=== PATIENT | female | born 1975 | race Caucasian/White ===

== ENCOUNTER 2018-11-04 15:07 | Emergency (ER) | payer BC ==
[2018-11-04 15:33] VITALS: BP 121/60
--- NOTE | 2018-11-04 15:57 | EDM.PDOC ---
ED HPI GENERAL MEDICAL PROBLEM - General Chief Complaint: Lower Extremity Injury/Pain Stated Complaint: PAIN BOTH KNEES Time Seen by Provider: 11/04/18 15:37 Source of Information: Reports: Patient History Limitations: Reports: No Limitations - History of Present Illness INITIAL COMMENTS - FREE TEXT/NARRATIVE: Patient is a 43-year-old female with a history of chronic knee pain secondary to bone spurs and osteoarthritis. She presents to the ED complaining of pain not well controlled with the anti-inflammatory gel that was previously prescribed by Dr. Hendrix. Patient states since March 2018 she has been falling due intermittent episodes of BPV. In addition she states with standing she sometimes gets sharp pains to the knee that are quite intense that worsens her BPV and thus causes her to fall. The pain dissipates but the ache continues. She states this morning with standing she developed severe sharp pain to the right lateral knee which caused her to fall on her knees bilaterally. Denies any trauma to her knee requiring x-rays. She refuses obtaining x-rays. States she had x-rays at Dr. Hendrix's office last week and thus does not want any additional ones. She sick and tired of having this pain is requesting something stronger for discomfort. She has not been on any narcotics for quite some time. She has been using ice to affected area as her normal therapy for chronic knee discomfort. 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 ED EXAM, GENERAL - Physical Exam Exam: See Below Exam Limited By: No Limitations General Appearance: Alert, WD/WN, No Apparent Distress Ears: Hearing Grossly Normal Nose: Normal Inspection Throat/Mouth: Normal Voice, No Airway Compromise Head: Atraumatic, Normocephalic Neck: Normal Inspection, Supple Respiratory/Chest: No Respiratory Distress, No Accessory Muscle Use Cardiovascular: Normal Peripheral Pulses, Regular Rate, Rhythm Peripheral Pulses: 2+: Radial (R) Extremities: Other (On examination of the right knee there is slight swelling noted to the inferior border of the knee along the medial aspect. This is compared to the left knee. With palpation of the right knee ain noted to the lateral aspect of the knee along the joint space. Pain along the area of swelling. There is no bruising no obvious bony antibiotics. She is able to flex and extend the knee with no issues. with provocative testing testing is limited due to the pain. No instability noted.) Neurological: Alert, Oriented, CN II-XII Intact, Normal Cognition, No Motor/ Sensory Deficits Course - Vital Signs Last Recorded V/S: Last Vital Signs Temp 98.3 F 11/04/18 15:27 Pulse 75 11/04/18 15:27 Resp 18 11/04/18 15:27 BP 121/60 11/04/18 15:27 Pulse Ox 98 11/04/18 15:27 - Re-Assessments/Exams Free Text/Narrative Re-Assessment/Exam: I have offered to obtain x-ray of the right knee twisted patient has refused. In addition I have offered to provide patient a walker to assure refuses as well. Patient states the discomfort she is currently experiencing is chronic with no significant changes. She is requesting something stronger for the pain. I have provided a short course of Loomis with instructions to follow-up with PCP tomorrow for further pain management. i informed the patient the emergency department does not treat chronic pain thus this needs to be managed by PCP or a pain specialist. Patient had no further questions concerns agree with plan. Return precautions were discussed with the patient. Departure - Departure Time of Disposition: :54 Disposition: Home, Self-Care 01 Condition: Good Clinical Impression: Chronic pain of both knees - Discharge Information Prescriptions: Acetaminophen/HYDROcodone [Loomis 325-5 MG] 1 tab PO Q6H PRN #5 tablet PRN Reason: Pain (Severe 7-10) Instructions: Knee Pain, Adult, Chronic Pain, Adult Referrals: Amari Hendrix MD [Physician] - Forms: ED Department Discharge Additional Instructions: As discussed continue with all our original home medications as prescribed for your chronic bilateral knee pain.I have provided a short course of Norco5/325. Take 1 tab every 6 hours as needed for severe pain.Do not drivenor take the Loomis and Tylenol together. He will have to see Dr. Hendrix or primary care provider of your choice for continued pain management.
== END 2018-11-04 16:09 | disposition home or self-care (01) ==
LOC: JD.ED 15:07
DX: M25.561 Pain in right knee (principal); M25.562 Pain in left knee; G89.29 Other chronic pain; Z88.8 Allergy status to other drugs, medicaments and biological substances; Z79.899 Other long term (current) drug therapy
CPT/HCPCS: 99283

== ENCOUNTER 2019-07-08 10:13 | Emergency (ER) | payer BC ==
[2019-07-08 10:33] VITALS: BP 125/89; PULSE 79
[2019-07-08] MEDS ORDERED: FLU Vacc QS2019-20(6MOS+)/PF 60 MCG/0.5 ML SYRINGE IM ONE (10:45)
[2019-07-08] MEDS ORDERED: Acetaminophen/HYDROcodone 325-5 MG Tab PO ONE (11:21)
[2019-07-08] MEDS ORDERED: Ketorolac 60 MG/2 ML SDV IM ONE (11:21)
--- NOTE | 2019-07-08 11:35 | EDM.PDOC ---
ED HPI GENERAL MEDICAL PROBLEM - General Chief Complaint: Lower Extremity Injury/Pain Stated Complaint: BOTH KNEE PAIN Time Seen by Provider: 07/08/19 11:05 Source of Information: Reports: Patient, RN Notes Reviewed - History of Present Illness INITIAL COMMENTS - FREE TEXT/NARRATIVE: 43 year old female comes in with bilat knee pain. Hx of osteoarthritis, has had cortisone shots that have helped but unable to get appt until late August. Severe pain this morning with standing, walking both knees, L greater than R. No recent injury. No fever or chills. Has been taking ibuprofen. No fall or recent injury. Other joints are fine. 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 Bilateral Knee Pain Score (Numeric/FACES): 10 - Related Data Allergies Allergy/AdvReac Type Severity Reaction Status Date / Time coconut Allergy Hives Verified 07/08/19 10:33 doxycycline Allergy Hives Verified 07/08/19 10:33 duloxetine [From Cymbalta] Allergy Hives Verified 07/08/19 10:33 prednisone Allergy Arrhythmias Verified 07/08/19 10:33 venlafaxine [From Effexor] Allergy Other Verified 07/08/19 10:33 Home Meds: Home Meds DULoxetine [Cymbalta] 120 mg PO DAILY 04/20/19 [History] Acetaminophen/HYDROcodone [[place] 325-5 MG] 1 tab PO Q6HR PRN #10 tablet [Rx] Ibuprofen 800 mg PO Q6HR 07/08/19 [History] Naproxen [Naprosyn] 500 mg PO Q12HR #14 tab 07/08/19 [Rx] Past Medical History Other HEENT History: nystagmus Cardiovascular History: Reports: Heart Murmur 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 Musculoskeletal History: Reports: Neck Pain, Chronic, Other (See Below) Other Musculoskeletal History: fusion to neck in January 2016 in [place] Psychiatric History: Reports: Anxiety, Depression - Past Surgical History GI Surgical History: Reports: Cholecystectomy Female Surgical History: Reports: Tubal Ligation Neurological Surgical History: Reports: C-Spine Social & Family History - Tobacco Use Smoking Status *Q: Current Every Day Smoker Years of Tobacco use: 30 Packs/Tins Daily: 1 - Caffeine Use Caffeine Use: Reports: Coffee - Recreational Drug Use Recreational Drug Use: No - Living Situation & Occupation Living situation: Reports: Occupation: Unemployed Review of Systems - Review of Systems Review Of Systems: See Below Mouth/Throat: Reports: No Symptoms Respiratory: Denies: Shortness of Breath Cardiovascular: Denies: Chest Pain GI/Abdominal: Denies: Abdominal Pain Musculoskeletal: Reports: Joint Pain (bilat knee) Neurological: Denies: Numbness, Tingling, Weakness ED EXAM, GENERAL - Physical Exam Exam: See Below General Appearance: Alert, Mild Distress Throat/Mouth: Normal Inspection Head: Atraumatic. No: Facial Swelling Neck: Supple, Full Range of Motion Respiratory/Chest: No Respiratory Distress, Lungs Clear, Normal Breath Sounds Cardiovascular: Regular Rate, Rhythm Extremities: Other (mild tenderness bilat knees, no erythema, warmth or swelling , lower legs nontender). No: Leg Pain, Increased Warmth, Redness Neurological: Alert, Oriented, No Motor/Sensory Deficits Skin Exam: Warm, Dry, Normal Color, No Rash Course - Vital Signs Last Recorded V/S: Last Vital Signs Temp 97.7 F 07/08/19 10:26 Pulse 79 07/08/19 10:26 Resp 20 07/08/19 10:26 BP 125/89 07/08/19 10:26 Pulse Ox 100 07/08/19 10:26 - Orders/Labs/Meds Meds: Medications Discontinued Medications Generic Name Dose Route Start Last Admin Trade Name María PRN Reason Stop Dose Admin Hydrocodone Bitart/Acetaminophen 1 tab 07/08/19 11:21 07/08/19 11:41 [place] 325-5 Mg PO 07/08/19 11:22 1 tab ONETIME ONE Administration Influenza Virus Vaccine 1 each 07/08/19 10:35 Pharmacy To Dose - Influenza Vaccine IM 07/08/19 10:36 ONETIME ONE Influenza Virus Vaccine 60 mcg 07/08/19 10:45 07/08/19 10:50 Fluzone Quad [id number] Syringe IM 07/08/19 10:46 60 mcg .ONCE ONE Administration Ketorolac Tromethamine 60 mg 07/08/19 11:21 07/08/19 11:41 Toradol IM 07/08/19 11:22 60 mg ONETIME ONE Administration - Re-Assessments/Exams Free Text/Narrative Re-Assessment/Exam: 07/08/19 12:08 rest knees, naprosyn 500 mg twice daily, tylenol in between doses for extra pain relief or hydrocodone if needed for severe pain. Do not take tylenol and hydrocodone at the same time. Physical Therapy, call for appt. Try see Dr Oakley at [facility] for eval, possible steroid injection if indicated. Call [phone] for appointment. Departure - Departure Time of Disposition: 11:46 Disposition: Home, Self-Care 01 Condition: Fair Clinical Impression: Knee pain, bilateral, Osteoarthritis - Discharge Information Prescriptions: Acetaminophen/HYDROcodone [[place] 325-5 MG] 1 tab PO Q6HR PRN #10 tablet PRN Reason: Pain Naproxen [Naprosyn] 500 mg PO Q12HR #14 tab Instructions: Decision Aid - Osteoarthritis, Knee, Arthritis, [id number] Referrals: Lauren Sevilla PA-C [Primary Care Provider] - Forms: ED Department Discharge Additional Instructions: rest knees, naprosyn 500 mg twice daily, tylenol 2 to 3 times daily in addition or hydrocodone if needed for severe pain. Do not take tylenol and ibuprofen at the same time. Alternate ice and heat as needed. Physical therapy. See Dr Oakley, Orthopedist at [facility] if that gives you an earlier appointment, call [phone].
== END 2019-07-08 12:30 | disposition home or self-care (01) ==
LOC: JD.ED 10:13
DX: M17.0 Bilateral primary osteoarthritis of knee (principal); F41.9 Anxiety disorder, unspecified; F32.9 Major depressive disorder, single episode, unspecified; F17.210 Nicotine dependence, cigarettes, uncomplicated; Z91.018 Allergy to other foods; Z88.8 Allergy status to other drugs, medicaments and biological substances; Z88.1 Allergy status to other antibiotic agents; Z79.899 Other long term (current) drug therapy; Z23 Encounter for immunization
CPT/HCPCS: 90471; 90686; 96372; 99283; A9270; J1885; G0008

== ENCOUNTER 2019-09-08 18:13 | Inpatient (IN) | payer SELFPAY ==
[2019-09-08] MEDS ORDERED: Sodium Chloride 0.9% 1,000 ML IV SCH (18:30)
[2019-09-08] MEDS ORDERED: Sodium Chloride 0.9% 10 ML Syringe FLUSH PRN (18:46)
[2019-09-08] MEDS ORDERED: Haloperidol Lactate 5 MG/ML SDV ONE (18:59)
[2019-09-08] MEDS ORDERED: Haloperidol Lactate 5 MG/ML SDV IVPUSH ONE ×3 (19:00→20:03)
--- NOTE | 2019-09-08 19:06 | EDM.PDOC ---
ED HPI GENERAL MEDICAL PROBLEM - General Chief Complaint: Drug or Alcohol Abuse Stated Complaint: [facility] Time Seen by Provider: 09/08/19 18:46 Source of Information: Reports: Patient, EMS, RN Notes Reviewed - History of Present Illness INITIAL COMMENTS - FREE TEXT/NARRATIVE: 44 year old female brought in by EMS with hx of overdose. Her is reported to have found her taking a "handful of pills" She states they were 5 mg flexeril, maybe a "few advil". Denies alcohol. Smoked some marijuana recently but not today. States she is depressed, "wants to " Chronic knee pain. Other problems that were difficult to make out. Takes cymbalta for depression. or boyfriend so far has not come to the ED. Bilateral Knee Pain Score (Numeric/FACES): 8 - Related Data Allergies Allergy/AdvReac Type Severity Reaction Status Date / Time coconut Allergy Hives Verified 09/09/19 01:50 doxycycline Allergy Hives Verified 09/09/19 01:50 duloxetine [From Cymbalta] Allergy Hives Verified 09/09/19 01:50 venlafaxine [From Effexor] Allergy Other Verified 09/09/19 01:50 prednisone AdvReac Arrhythmias Verified 09/09/19 11:11 Home Meds: Home Meds DULoxetine [Cymbalta] 120 mg PO DAILY 04/20/19 [History] Ibuprofen 800 mg PO Q6HR PRN 07/08/19 [History] Past Medical History Other HEENT History: nystagmus Cardiovascular History: Reports: Heart Murmur 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 Musculoskeletal History: Reports: Neck Pain, Chronic, Other (See Below) Other Musculoskeletal History: fusion to neck in January 2016 in [place] Psychiatric History: Reports: Anxiety, Depression - Past Surgical History GI Surgical History: Reports: Cholecystectomy Female Surgical History: Reports: Tubal Ligation Neurological Surgical History: Reports: C-Spine Social & Family History - Tobacco Use Smoking Status *Q: Current Every Day Smoker Years of Tobacco use: 20 Packs/Tins Daily: 1 - Caffeine Use Caffeine Use: Reports: Coffee - Recreational Drug Use Recreational Drug Use: Yes Recreational Drug Type: Reports: Marijuana/Hashish Recreational Drug Use Frequency: Rarely - Living Situation & Occupation Living situation: Reports: Occupation: Unemployed ED ROS GENERAL - Review of Systems Review Of Systems: See Below Constitutional: Denies: Diaphoresis HEENT: Reports: No Symptoms Respiratory: Denies: Shortness of Breath Cardiovascular: Denies: Chest Pain GI/Abdominal: Denies: Abdominal Pain, Nausea, Vomiting Musculoskeletal: Reports: Back Pain Skin: Reports: No Symptoms (Chronic) Neurological: Reports: Dizziness Psychiatric: Reports: Depression, Suicidal Ideation - Physical Exam Exam: See Below General Appearance: Alert, Anxious, Moderate Distress Eye Exam: Bilateral Eye: PERRL Throat/Mouth: Normal Inspection, Normal Oropharynx Head Exam: Atraumatic Neck: Supple Respiratory/Chest: No Respiratory Distress, Lungs Clear, Normal Breath Sounds Cardiovascular: Regular Rate, Rhythm GI/Abdominal: Soft, Non-Tender Neuro Exam (Abbreviated): Alert, No Motor/Sensory Deficits Extremities: Normal Inspection, Normal Range of Motion Psychiatric: Anxious, Other (Loud voice, yelling, crying) Skin Exam: Warm, Dry, Normal Color EKG INTERPRETATION EKG Date: 09/08/19 Rhythm: NSR P-Wave: Present QRS: Other (incomplete RBB) ST-T: Other (ST depression inf. leads) Course - Vital Signs Last Recorded V/S: Last Vital Signs Temp 97.0 F 09/09/19 20:00 Pulse 80 09/09/19 04:00 Resp 18 09/09/19 20:00 BP 136/63 09/09/19 20:00 Pulse Ox 97 09/09/19 20:00 - Orders/Labs/Meds Orders: Medication Orders Hydromorphone HCl (Dilaudid) 1 mg IVPUSH Q1H PRN PRN Reason: Pain (severe 7-10) Sodium Chloride (Normal Saline) 1,000 mls @ 150 mls/hr IV ASDIRECTED [facility] Last Admin: 09/09/19 16:11 Dose: 150 mls/hr Infusion: 09/09/19 16:11 Dose: 150 mls/hr Admin: 09/09/19 09:34 Dose: 150 mls/hr Infusion: 09/09/19 09:34 Dose: 150 mls/hr Admin: 09/09/19 04:33 Dose: 150 mls/hr Infusion: 09/09/19 04:33 Dose: 150 mls/hr Admin: 09/09/19 02:41 Dose: 150 mls/hr Infusion: 09/09/19 02:41 Dose: 150 mls/hr Admin: 09/08/19 22:40 Dose: 150 mls/hr Lorazepam (Ativan) 1 mg IVPUSH Q1H PRN PRN Reason: Anxiety Last Admin: 09/09/19 14:44 Dose: 1 mg Admin: 09/09/19 09:27 Dose: 1 mg Admin: 09/09/19 00:53 Dose: 1 mg Admin: 09/08/19 23:55 Dose: 1 mg Admin: 09/08/19 22:59 Dose: 1 mg Lorazepam (Ativan) 2 mg IVPUSH Q1H PRN PRN Reason: Anxiety Last Admin: 09/09/19 20:31 Dose: 2 mg Admin: 09/09/19 19:36 Dose: 2 mg Admin: 09/09/19 17:57 Dose: 2 mg Admin: 09/09/19 16:39 Dose: 2 mg Admin: 09/09/19 06:11 Dose: 2 mg Admin: 09/09/19 05:14 Dose: 2 mg Admin: 09/09/19 04:15 Dose: 2 mg Admin: 09/09/19 03:04 Dose: 2 mg Admin: 09/09/19 01:56 Dose: 2 mg Miscellaneous Information (Remove Patch) 0 ea TRDERM DAILY [facility] Nicotine (Habitrol) 21 mg TRDERM DAILY [facility] Last Admin: 09/09/19 11:46 Dose: 21 mg Pantoprazole Sodium (Protonix Iv) 40 mg IVPUSH Q12H HELGA Last Admin: 09/09/19 19:44 Dose: 40 mg Admin: 09/09/19 06:34 Dose: 40 mg Sodium Chloride (Saline Flush) 10 ml FLUSH ASDIRECTED PRN PRN Reason: Keep Vein Open Last Admin: 09/08/19 20:04 Dose: 10 ml Labs: Laboratory Tests 09/08/19 09/08/19 09/08/19 Range/Units 18:32 18:32 18:32 WBC 5.84 (3.98-10.04) K/mm3 RBC 5.64 H (3.98-5.22) M/mm3 Hgb 16.6 H D (11.2-15.7) gm/dl Hct 50.8 H (34.1-44.9) % MCV 90.1 (79.4-94.8) fl MCH 29.4 (25.6-32.2) pg MCHC 32.7 (32.2-35.5) g/dl RDW Std Deviation 45.4 (36.4-46.3) fL Plt Count 235 (182-369) K/mm3 MPV 10.6 (9.4-12.3) fl Neut % (Auto) 53.1 (34.0-71.1) % Lymph % (Auto) 35.1 (19.3-51.7) % [place] % (Auto) 9.9 (4.7-12.5) % Eos % (Auto) 1.4 (0.7-5.8) Baso % (Auto) 0.3 (0.1-1.2) % Neut # (Auto) 3.10 (1.56-6.13) K/mm3 Lymph # (Auto) 2.05 (1.18-3.74) K/mm3 [place] # (Auto) 0.58 H (0.24-0.36) K/mm3 Eos # (Auto) 0.08 (0.04-0.36) K/mm3 Baso # (Auto) 0.02 (0.01-0.08) K/mm3 Sodium 144 (136-145) mEq/L Potassium 3.4 L (3.5-5.1) mEq/L Chloride 103 (98-107) mEq/L Carbon Dioxide 28 (21-32) mEq/L Anion Gap 16.4 H (5-15) BUN 16 (7-18) mg/dL Creatinine 1.0 (0.55-1.02) mg/dL Est Cr Clr Drug Dosing 65.81 mL/min Estimated GFR (MDRD) 60 (>60) mL/min BUN/Creatinine Ratio 16.0 (14-18) Glucose 121 H (74-106) mg/dL Calcium 9.8 (8.5-10.1) mg/dL Magnesium 2.0 (1.8-2.4) mg/dl Total Bilirubin 1.1 H (0.2-1.0) mg/dL AST 27 (15-37) U/L ALT 22 (14-59) U/L Alkaline Phosphatase 120 H (46-116) U/L Troponin I < 0.017 (0.00-0.056) ng/mL Total Protein 9.1 H (6.4-8.2) g/dl Albumin 4.6 (3.4-5.0) g/dl Globulin 4.5 gm/dL Albumin/Globulin Ratio 1.0 (1-2) Salicylates (2.8-20) mg/dL Urine Opiates Screen (IQYWWR=311) Ur Buprenorphine Scrn (CUTOFF=10) Ur Oxycodone Screen (STK6CG=014) Urine Methadone Screen (BXQYWJ=310) Ur Propoxyphene Screen (SRAJDE=639) Acetaminophen 0 L (10-30) ug/mL Ur Barbiturates Screen (LOFJHG=570) Ur Tricyclics Screen (CNFAMY=230) Ur Phencyclidine Scrn (CUTOFF=25) Ur Amphetamine Screen (PPAAPM=699) U Methamphetamines Scrn (ODAWON=975) U Benzodiazepines Scrn (AFPKOT=010) U Cocaine Metab Screen (LLPMJQ=508) U Marijuana (THC) Screen (CUTOFF=50) Ethyl Alcohol 0.00 (0.00) gm% 09/08/19 09/08/19 Range/Units 18:32 18:50 WBC (3.98-10.04) K/mm3 RBC (3.98-5.22) M/mm3 Hgb (11.2-15.7) gm/dl Hct (34.1-44.9) % MCV (79.4-94.8) fl MCH (25.6-32.2) pg MCHC (32.2-35.5) g/dl RDW Std Deviation (36.4-46.3) fL Plt Count (182-369) K/mm3 MPV (9.4-12.3) fl Neut % (Auto) (34.0-71.1) % Lymph % (Auto) (19.3-51.7) % [place] % (Auto) (4.7-12.5) % Eos % (Auto) (0.7-5.8) Baso % (Auto) (0.1-1.2) % Neut # (Auto) (1.56-6.13) K/mm3 Lymph # (Auto) (1.18-3.74) K/mm3 [place] # (Auto) (0.24-0.36) K/mm3 Eos # (Auto) (0.04-0.36) K/mm3 Baso # (Auto) (0.01-0.08) K/mm3 Sodium (136-145) mEq/L Potassium (3.5-5.1) mEq/L Chloride (98-107) mEq/L Carbon Dioxide (21-32) mEq/L Anion Gap (5-15) BUN (7-18) mg/dL Creatinine (0.55-1.02) mg/dL Est Cr Clr Drug Dosing mL/min Estimated GFR (MDRD) (>60) mL/min BUN/Creatinine Ratio (14-18) Glucose (74-106) mg/dL Calcium (8.5-10.1) mg/dL Magnesium (1.8-2.4) mg/dl Total Bilirubin (0.2-1.0) mg/dL AST (15-37) U/L ALT (14-59) U/L Alkaline Phosphatase (46-116) U/L Troponin I (0.00-0.056) ng/mL Total Protein (6.4-8.2) g/dl Albumin (3.4-5.0) g/dl Globulin gm/dL Albumin/Globulin Ratio (1-2) Salicylates 3.3 (2.8-20) mg/dL Urine Opiates Screen Negative (MVYTTQ=213) Ur Buprenorphine Scrn Negative (CUTOFF=10) Ur Oxycodone Screen Negative (GXA6TX=621) Urine Methadone Screen Negative (HPJJPS=608) Ur Propoxyphene Screen Negative (XJUGHQ=613) Acetaminophen (10-30) ug/mL Ur Barbiturates Screen Negative (SCXJSF=463) Ur Tricyclics Screen Presumptive positive H (MKJFQE=316) Ur Phencyclidine Scrn Negative (CUTOFF=25) Ur Amphetamine Screen Negative (XYYGST=819) U Methamphetamines Scrn Negative (WKCYUP=200) U Benzodiazepines Scrn Negative (FQYQBA=298) U Cocaine Metab Screen Negative (WZSRUQ=148) U Marijuana (THC) Screen Presumptive positive H (CUTOFF=50) Ethyl Alcohol (0.00) gm% Meds: Medications Generic Name Dose Route Start Last Admin Trade Name Freq PRN Reason Stop Dose Admin Hydromorphone HCl 1 mg 09/09/19 17:55 Dilaudid IVPUSH Q1H PRN Pain (severe 7-10) Sodium Chloride 1,000 mls @ 150 mls/hr 09/08/19 22:45 09/09/19 16:11 Normal Saline IV 150 mls/hr ASDIRECTED HELGA Administration Lorazepam 1 mg 09/08/19 21:59 09/09/19 14:44 Ativan IVPUSH 1 mg Q1H PRN Administration Anxiety Lorazepam 2 mg 09/09/19 01:27 09/09/19 20:31 Ativan IVPUSH 2 mg Q1H PRN Administration Anxiety Miscellaneous Information 0 ea 09/10/19 09:00 Remove Patch TRDERM DAILY HELGA Nicotine 21 mg 09/09/19 11:30 09/09/19 11:46 Habitrol TRDERM 21 mg DAILY [facility] Administration Pantoprazole Sodium 40 mg 09/09/19 07:30 09/09/19 19:44 Protonix Iv IVPUSH 40 mg Q12H HELGA Administration Sodium Chloride 10 ml 09/08/19 18:46 09/08/19 20:04 Saline Flush FLUSH 10 ml ASDIRECTED PRN Administration Keep Vein Open Discontinued Medications Generic Name Dose Route Start Last Admin Trade Name Freq PRN Reason Stop Dose Admin Haloperidol Lactate 5 mg 09/08/19 19:00 09/08/19 19:03 Haldol IVPUSH 09/08/19 19:01 5 mg ONETIME ONE Administration Haloperidol Lactate 5 mg 09/08/19 19:00 09/08/19 19:03 Haldol IVPUSH 09/08/19 19:01 Not Given ONETIME ONE Haloperidol Lactate Confirm 09/08/19 18:59 09/08/19 19:02 Haldol Administered 09/08/19 19:00 Not Given Dose 5 mg .ROUTE .STK-MED ONE Haloperidol Lactate 5 mg 09/08/19 20:03 09/08/19 19:40 Haldol IVPUSH 09/08/19 20:04 5 mg ONETIME ONE Administration Haloperidol Lactate 5 mg 09/09/19 16:48 09/09/19 16:52 Haldol IM 09/09/19 16:49 5 mg STAT ONE Administration Sodium Chloride 1,000 mls @ 999 mls/hr 09/08/19 18:30 09/08/19 18:32 Normal Saline IV 999 mls/hr ASDIRECTED HELGA Administration Lactated Ringer's 1,000 mls @ 150 mls/hr 09/08/19 21:15 Ringers, Lactated IV ASDIRECTED HELGA Potassium Chloride 10 meq/ 100 mls @ 100 mls/hr 09/08/19 23:00 09/09/19 01:54 Premix IV 09/09/19 02:59 100 mls/hr Q1H HELGA Administration Propofol Confirm 09/09/19 21:44 Diprivan 100 Ml Administered 09/09/19 21:45 Dose 100 mls @ as directed .ROUTE .STK-MED ONE Lorazepam Confirm 09/08/19 20:30 09/08/19 21:55 Ativan Administered 09/08/19 20:31 1 mg Dose Administration 2 mg .ROUTE .STK-MED ONE Lorazepam 1 mg 09/08/19 20:34 09/08/19 20:37 Ativan IVPUSH 09/08/19 20:35 1 mg ONETIME ONE Administration Lorazepam Confirm 09/08/19 20:42 09/08/19 21:57 Ativan Administered 09/08/19 20:43 1 mg Dose Administration 2 mg .ROUTE .STK-MED ONE Lorazepam Confirm 09/08/19 20:52 09/08/19 21:59 Ativan Administered 09/08/19 20:53 Not Given Dose 2 mg .ROUTE .STK-MED ONE Pantoprazole Sodium 40 mg 09/08/19 23:00 09/08/19 22:45 Protonix Iv IVPUSH 09/08/19 23:01 40 mg ONETIME ONE Administration Physostigmine Salicylate 0.5 mg 09/09/19 17:54 09/09/19 18:38 Physostigmine IVPUSH 09/09/19 17:55 0.5 mg ONETIME ONE Administration Physostigmine Salicylate 0.5 mg 09/09/19 19:09 09/09/19 22:42 Physostigmine IVPUSH 09/09/19 19:10 Not Given ONETIME ONE - Re-Assessments/Exams Free Text/Narrative Re-Assessment/Exam: 09/08/19 19:20. Was anxious but coherent on arrival, started yelling, hallucinating, yelling at people not present about 15 minutes ago requiring 5 mg haldol IV, slighlty more calm but has been trying to get off the cot, still yelling, agitated, will give 5 mg more haldol IV. 09/08/19 20:12. One of our nurses has called poison control. They state the flexeril effect will peak around 6 hours from time if ingegestion which was around 3hrs ago. Expect qt prolongation, agitation and/or sedation. Cymbalta expect EKG changes, treat symptamatically. They recomend a salycylate level which will be done, recomend EKG monitering for a minimum of 8 hrs which will be done. Recomend and further treatment be with benzodizepines, no haldol to avoid any further qt effect. Pt will be admitted to ICU. Departure - Departure Time of Disposition: 22:05 Disposition: Admitted As Inpatient 64 Condition: Serious Clinical Impression: Suicidal ideation Drug overdose, intentional Qualifiers: Encounter type: initial encounter Qualified Code(s): T50.902A - Poisoning by unspecified drugs, medicaments and biological substances, intentional self-harm , initial encounter - Discharge Information ED Communication - Discussed Case With (1) Discussed Case With (1): Admitting Provider (Dr Up, decision to admit at about 22:05.)
[2019-09-08] MEDS ORDERED: LORazepam 2 MG/ML SDV ONE ×3 (20:30→20:52)
[2019-09-08] MEDS ORDERED: LORazepam 2 MG/ML SDV IVPUSH ONE (20:34)
[2019-09-08] MEDS ORDERED: Lactated Ringers 1,000 ML IV SCH (21:15)
--- NOTE | 2019-09-08 22:34 | PCM.HP.2 ---
H&P History of Present Illness - General Date of Service: 09/08/19 Admit Problem/Dx: Admission Diagnosis/Problem Admission Diagnosis/Problem Drug overdose - History of Present Illness Initial Comments - Free Text/Narative: 44-year-old female brought into the emergency department by EMS secondary to a drug overdose. Patient's and her had an argument and she went to the bathroom and slammed the door. He states he kicked the door and and she was found after taking a handful of Flexeril and maybe a few Advil. Flexeril was reported to be 5 mg tablets, and states that she probably took around 20 but he is not sure. When she presented to the emergency room she did state "wants to " and wanted to escape the pain from her chronic knee pain. She has a history of depression and is on Cymbalta, but her does not think she took any extra tonight. Patient also uses marijuana for pain. In the emergency room she was initially anxious but coherent and then suddenly started yelling, hallucinating, and yelling at people not present. Patient was then given Haldol 5 mg IV x2 to control her agitation. Once poison control was contacted it was noted that we should expect QT prolongation, agitation, and/or sedation. Flexeril's peak effect should occur approximately 6 hours and Cymbalta approximately 8 hours. They recommended minimum of 8 hours on cardiac monitoring. They also recommended using benzodiazepines for agitation. EKG done at 1951 showed sinus tachycardia with a ventricular rate of [address] depression in inferior anterolateral leads diffusely. Bilateral Knee Pain Score (Numeric/FACES): 8 - Related Data Allergies/Adverse Reactions: Allergies Allergy/AdvReac Type Severity Reaction Status Date / Time coconut Allergy Hives Verified 07/08/19 10:33 doxycycline Allergy Hives Verified 07/08/19 10:33 duloxetine [From Cymbalta] Allergy Hives Verified 07/08/19 10:33 prednisone Allergy Arrhythmias Verified 07/08/19 10:33 venlafaxine [From Effexor] Allergy Other Verified 07/08/19 10:33 Home Medications: Home Meds DULoxetine [Cymbalta] 120 mg PO DAILY 04/20/19 [History] Acetaminophen/HYDROcodone [[place] 325-5 MG] 1 tab PO Q6HR PRN #10 tablet [Rx] Ibuprofen 800 mg PO Q6HR 07/08/19 [History] Naproxen [Naprosyn] 500 mg PO Q12HR #14 tab 07/08/19 [Rx] Past Medical History Other HEENT History: nystagmus Cardiovascular History: Reports: Heart Murmur [employer] History: Reports: Other OB/BYN History: 3 vag del Musculoskeletal History: Reports: Neck Pain, Chronic, Other (See Below) Other Musculoskeletal History: fusion to neck in January 2016 in [place] Psychiatric History: Reports: Anxiety, Depression - Past Surgical History GI Surgical History: Reports: Cholecystectomy Female Surgical History: Reports: Tubal Ligation Neurological Surgical History: Reports: C-Spine Social & Family History - Tobacco Use Smoking Status *Q: Current Every Day Smoker Years of Tobacco use: 20 Packs/Tins Daily: 1 - Caffeine Use Caffeine Use: Reports: Coffee - Recreational Drug Use Recreational Drug Use: Yes Recreational Drug Type: Reports: Marijuana/Hashish Recreational Drug Use Frequency: Rarely - Living Situation & Occupation Living situation: Reports: Occupation: Unemployed H&P Review of Systems - Review of Systems: Review Of Systems: Comprehensive ROS is negative, except as noted in HPI. Exam - Exam Exam: See Below - Vital Signs Vital Signs: Last Vital Signs Temp 98.4 F 09/08/19 18:14 Pulse 61 09/08/19 18:14 Resp 18 09/08/19 18:14 BP 131/70 09/08/19 18:14 Pulse Ox 98 09/08/19 18:14 Weight: 165 lb - Exam General: Obtunded HEENT: Conjunctiva Clear. No: Mucosa Moist & [place] (Mucous membranes dry) Neck: Supple Lungs: Clear to Auscultation, Normal Respiratory Effort Cardiovascular: Regular Rhythm, Tachycardia GI/Abdominal Exam: Normal Bowel Sounds, Soft, Non-Tender Extremities: Normal Inspection, Normal Range of Motion, Non-Tender, No Pedal Edema, Normal Capillary Refill Skin: Warm, Dry, Intact Neuro Extensive - Mental Status: Other (Easily agitated. Sedated.) - Patient Data Lab Results Last 24 hrs: Laboratory Results - last 24 hr 09/08/19 09/08/19 09/08/19 Range/Units 18:32 18:32 18:32 WBC 5.84 (3.98-10.04) K/mm3 RBC 5.64 H (3.98-5.22) M/mm3 Hgb 16.6 H D (11.2-15.7) gm/dl Hct 50.8 H (34.1-44.9) % MCV 90.1 (79.4-94.8) fl MCH 29.4 (25.6-32.2) pg MCHC 32.7 (32.2-35.5) g/dl RDW Std Deviation 45.4 (36.4-46.3) fL Plt Count 235 (182-369) K/mm3 MPV 10.6 (9.4-12.3) fl Neut % (Auto) 53.1 (34.0-71.1) % Lymph % (Auto) 35.1 (19.3-51.7) % [place] % (Auto) 9.9 (4.7-12.5) % Eos % (Auto) 1.4 (0.7-5.8) Baso % (Auto) 0.3 (0.1-1.2) % Neut # (Auto) 3.10 (1.56-6.13) K/mm3 Lymph # (Auto) 2.05 (1.18-3.74) K/mm3 [place] # (Auto) 0.58 H (0.24-0.36) K/mm3 Eos # (Auto) 0.08 (0.04-0.36) K/mm3 Baso # (Auto) 0.02 (0.01-0.08) K/mm3 Sodium 144 (136-145) mEq/L Potassium 3.4 L (3.5-5.1) mEq/L Chloride 103 (98-107) mEq/L Carbon Dioxide 28 (21-32) mEq/L Anion Gap 16.4 H (5-15) BUN 16 (7-18) mg/dL Creatinine 1.0 (0.55-1.02) mg/dL Est Cr Clr Drug Dosing 65.81 mL/min Estimated GFR (MDRD) 60 (>60) mL/min BUN/Creatinine Ratio 16.0 (14-18) Glucose 121 H (74-106) mg/dL Calcium 9.8 (8.5-10.1) mg/dL Magnesium 2.0 (1.8-2.4) mg/dl Total Bilirubin 1.1 H (0.2-1.0) mg/dL AST 27 (15-37) U/L ALT 22 (14-59) U/L Alkaline Phosphatase 120 H (46-116) U/L Troponin I < 0.017 (0.00-0.056) ng/mL Total Protein 9.1 H (6.4-8.2) g/dl Albumin 4.6 (3.4-5.0) g/dl Globulin 4.5 gm/dL Albumin/Globulin Ratio 1.0 (1-2) Salicylates (2.8-20) mg/dL Urine Opiates Screen (XNPRAD=308) Ur Buprenorphine Scrn (CUTOFF=10) Ur Oxycodone Screen (VKE8IG=675) Urine Methadone Screen (YXAVJN=891) Ur Propoxyphene Screen (NZYIUJ=416) Acetaminophen 0 L (10-30) ug/mL Ur Barbiturates Screen (GBREMR=412) Ur Tricyclics Screen (UFXQLJ=355) Ur Phencyclidine Scrn (CUTOFF=25) Ur Amphetamine Screen (XNODFM=000) U Methamphetamines Scrn (QLXKTP=606) U Benzodiazepines Scrn (QNJOSB=883) U Cocaine Metab Screen (MJHXDC=938) U Marijuana (THC) Screen (CUTOFF=50) Ethyl Alcohol 0.00 (0.00) gm% 09/08/19 09/08/19 Range/Units 18:32 18:50 WBC (3.98-10.04) K/mm3 RBC (3.98-5.22) M/mm3 Hgb (11.2-15.7) gm/dl Hct (34.1-44.9) % MCV (79.4-94.8) fl MCH (25.6-32.2) pg MCHC (32.2-35.5) g/dl RDW Std Deviation (36.4-46.3) fL Plt Count (182-369) K/mm3 MPV (9.4-12.3) fl Neut % (Auto) (34.0-71.1) % Lymph % (Auto) (19.3-51.7) % [place] % (Auto) (4.7-12.5) % Eos % (Auto) (0.7-5.8) Baso % (Auto) (0.1-1.2) % Neut # (Auto) (1.56-6.13) K/mm3 Lymph # (Auto) (1.18-3.74) K/mm3 [place] # (Auto) (0.24-0.36) K/mm3 Eos # (Auto) (0.04-0.36) K/mm3 Baso # (Auto) (0.01-0.08) K/mm3 Sodium (136-145) mEq/L Potassium (3.5-5.1) mEq/L Chloride (98-107) mEq/L Carbon Dioxide (21-32) mEq/L Anion Gap (5-15) BUN (7-18) mg/dL Creatinine (0.55-1.02) mg/dL Est Cr Clr Drug Dosing mL/min Estimated GFR (MDRD) (>60) mL/min BUN/Creatinine Ratio (14-18) Glucose (74-106) mg/dL Calcium (8.5-10.1) mg/dL Magnesium (1.8-2.4) mg/dl Total Bilirubin (0.2-1.0) mg/dL AST (15-37) U/L ALT (14-59) U/L Alkaline Phosphatase (46-116) U/L Troponin I (0.00-0.056) ng/mL Total Protein (6.4-8.2) g/dl Albumin (3.4-5.0) g/dl Globulin gm/dL Albumin/Globulin Ratio (1-2) Salicylates 3.3 (2.8-20) mg/dL Urine Opiates Screen Negative (NERPXP=797) Ur Buprenorphine Scrn Negative (CUTOFF=10) Ur Oxycodone Screen Negative (KEK7TR=370) Urine Methadone Screen Negative (GNVNBX=954) Ur Propoxyphene Screen Negative (PQAUJW=396) Acetaminophen (10-30) ug/mL Ur Barbiturates Screen Negative (IIHMMD=666) Ur Tricyclics Screen Presumptive positive H (SQKJNM=904) Ur Phencyclidine Scrn Negative (CUTOFF=25) Ur Amphetamine Screen Negative (HIGQWE=592) U Methamphetamines Scrn Negative (ZYYUWS=803) U Benzodiazepines Scrn Negative (DQKBMX=686) U Cocaine Metab Screen Negative (FZXVKK=585) U Marijuana (THC) Screen Presumptive positive H (CUTOFF=50) Ethyl Alcohol (0.00) gm% Result Diagrams: 09/08/19 18:32 09/08/19 18:32 EKG INTERPRETATION EKG Date: 09/08/19 Time: 21:09 Rhythm: NSR Rate (Beats/Min): 91 [place]: Normal P-Wave: Present QRS: Normal ST-T: Depressed (Leads II, aVF V3, V4, V5 and V6) QT: Normal Problem List Initiated/Reviewed/Updated: Yes Orders Last 24hrs: Active Orders 24 hr Category Date Time Status Patient Status [ADT] Routine ADT 09/08/19 20:45 Active EKG Documentation Completion [RC] STAT Care 09/08/19 21:07 Active Insert [place] Catheter [Insert Urinary Catheter] [OM.PC] Care 09/08/19 22:00 Ordered Q24H Oxygen Therapy [RC] PRN Care 09/08/19 22:18 Ordered Peripheral IV Care [RC] Q2HR Care 09/08/19 18:46 Active Up With Assistance [RC] ASDIRECTED Care 09/08/19 22:18 Ordered Urinary Catheter Assessment [RC] Q4HR Care 09/08/19 21:52 Active VTE/DVT Education [RC] PER UNIT ROUTINE Care 09/08/19 22:18 Ordered Vital Signs [RC] Q4H Care 09/08/19 22:18 Ordered Nothing per Oral Now Diet [DIET] Diet 09/09/19 Breakfast Ordered COMPREHENSIVE METABOLIC PN,CMP [CHEM] Timed Lab 09/09/19 08:00 Ordered MAGNESIUM [CHEM] Timed Lab 09/09/19 08:00 Ordered LORazepam [Ativan] Med 09/08/19 21:59 Active 1 mg IVPUSH Q1H PRN Lactated Ringers [Ringers, Lactated] 1,000 ml Med 09/08/19 21:15 Active IV ASDIRECTED Sodium Chloride 0.9% [Normal Saline] 1,000 ml Med 09/08/19 18:30 Active IV ASDIRECTED Sodium Chloride 0.9% [Saline Flush] Med 09/08/19 18:46 Active 10 ml FLUSH ASDIRECTED PRN Peripheral IV Insertion Adult [OM.PC] Stat Oth 09/08/19 18:46 Ordered Resuscitation Status Routine Resus Stat 09/08/19 22:18 Ordered Medication Orders Sodium Chloride (Normal Saline) 1,000 mls @ 999 mls/hr IV ASDIRECTED HELGA Last Admin: 09/08/19 18:32 Dose: 999 mls/hr Lactated Ringer's (Ringers, Lactated) 1,000 mls @ 150 mls/hr IV ASDIRECTED [facility] Lorazepam (Ativan) 1 mg IVPUSH Q1H PRN PRN Reason: Anxiety Sodium Chloride (Saline Flush) 10 ml FLUSH ASDIRECTED PRN PRN Reason: Keep Vein Open Last Admin: 09/08/19 20:04 Dose: 10 ml Assessment/Plan Comment:: Assessment * Medication overdose likely cyclobenzaprine * Found with 2 handfuls of cyclobenzaprine 5 mg likely approximately 20 pills. * Unknown if other medications including Advil or Cymbalta. * Received Haldol in the emergency room. * Sinus tachycardia * RSR prime/incomplete right bundle branch block pattern. * Poison control contacted by ER and recommended benzodiazepines for agitation. * Troponin less than 0.01 * Depression/possible suicide attempt * History of depression on Cymbalta * Patient stated that she was trying to harm herself. * Chronic knee pain on cyclobenzaprine * Hypokalemia Plan * Admit to ICU * Follow with poison control * Cardiac monitoring overnight * Ativan for sedation * Potassium chloride 40 mEq IV over 4 hours * Follow-up EKG, CMP, troponin * Consult psychiatry when awake * One-on-one nursing * N.p.o. until able to swallow * Protonix for GI protection * CODE STATUS full code - Mortality Measure Prognosis:: Poor
[2019-09-08] MEDS: Sodium Chloride 0.9% 1,000 ML IV SCH (22:40)
[2019-09-08] MEDS: Potassium Chloride 10 MEQ in Premix Bag 1 BAG IV SCH ×2 (22:55→23:42)
[2019-09-08] MEDS: LORazepam 2 MG/ML SDV IVPUSH PRN ×2 (22:59→23:55)
[2019-09-08] MEDS ORDERED: Pantoprazole 40 MG Vial IVPUSH ONE (23:00)
[2019-09-09] MEDS: Potassium Chloride 10 MEQ in Premix Bag 1 BAG IV SCH ×2 (00:52→01:54)
[2019-09-09] MEDS: LORazepam 2 MG/ML SDV IVPUSH PRN ×13 (00:53→21:25)
[2019-09-09] MEDS: Sodium Chloride 0.9% 1,000 ML IV SCH ×4 (02:41→16:11)
[2019-09-09] MEDS: Pantoprazole 40 MG Vial IVPUSH SCH ×2 (06:34→19:44)
[2019-09-09] MEDS ORDERED: Nicotine 21 MG/24 Hr Patch TRDERM SCH (11:30)
[2019-09-09] MEDS ORDERED: Haloperidol Lactate 5 MG/ML SDV IM ONE (16:48)
--- NOTE | 2019-09-09 17:01 | PCM.PN ---
- General Info Date of Service: 09/09/19 Admission Dx/Problem (Free Text): Admission Diagnosis/Problem Admission Diagnosis/Problem Drug overdose Subjective Update: Patient continues to have episodes of agitation. She can be combative and try to punch people. She continues to try to get up out of the bed although she is a fall risk still. Patient was given 2 mg of Ativan IV and continues to be aggressive at 1645. She is currently a risk for herself and others. - Review of Systems General: Reports: Other (Unable to obtain secondary to altered mental status) - Patient Data Vitals - Most Recent: Last Vital Signs Temp 98 F 09/09/19 16:00 Pulse 80 09/09/19 04:00 Resp 18 09/09/19 16:00 BP 118/52 L 09/09/19 16:00 Pulse Ox 96 09/09/19 16:00 Weight - Most Recent: 181 lb 8 oz I&O - Last 24 Hours: Intake & Output 09/09/19 09/09/19 09/09/19 06:59 14:59 22:59 Intake Total 1542 1955 Output Total 380 180 Balance 1162 -180 6 Lab Results Last 24 Hours: Laboratory Results - last 24 hr 09/08/19 09/08/19 09/08/19 Range/Units 18:32 18:32 18:32 WBC 5.84 (3.98-10.04) K/mm3 RBC 5.64 H (3.98-5.22) M/mm3 Hgb 16.6 H D (11.2-15.7) gm/dl Hct 50.8 H (34.1-44.9) % MCV 90.1 (79.4-94.8) fl MCH 29.4 (25.6-32.2) pg MCHC 32.7 (32.2-35.5) g/dl RDW Std Deviation 45.4 (36.4-46.3) fL Plt Count 235 (182-369) K/mm3 MPV 10.6 (9.4-12.3) fl Neut % (Auto) 53.1 (34.0-71.1) % Lymph % (Auto) 35.1 (19.3-51.7) % [place] % (Auto) 9.9 (4.7-12.5) % Eos % (Auto) 1.4 (0.7-5.8) Baso % (Auto) 0.3 (0.1-1.2) % Neut # (Auto) 3.10 (1.56-6.13) K/mm3 Lymph # (Auto) 2.05 (1.18-3.74) K/mm3 [place] # (Auto) 0.58 H (0.24-0.36) K/mm3 Eos # (Auto) 0.08 (0.04-0.36) K/mm3 Baso # (Auto) 0.02 (0.01-0.08) K/mm3 Sodium 144 (136-145) mEq/L Potassium 3.4 L (3.5-5.1) mEq/L Chloride 103 (98-107) mEq/L Carbon Dioxide 28 (21-32) mEq/L Anion Gap 16.4 H (5-15) BUN 16 (7-18) mg/dL Creatinine 1.0 (0.55-1.02) mg/dL Est Cr Clr Drug Dosing 65.81 mL/min Estimated GFR (MDRD) 60 (>60) mL/min BUN/Creatinine Ratio 16.0 (14-18) Glucose 121 H (74-106) mg/dL Calcium 9.8 (8.5-10.1) mg/dL Magnesium 2.0 (1.8-2.4) mg/dl Total Bilirubin 1.1 H (0.2-1.0) mg/dL AST 27 (15-37) U/L ALT 22 (14-59) U/L Alkaline Phosphatase 120 H (46-116) U/L Troponin I < 0.017 (0.00-0.056) ng/mL Total Protein 9.1 H (6.4-8.2) g/dl Albumin 4.6 (3.4-5.0) g/dl Globulin 4.5 gm/dL Albumin/Globulin Ratio 1.0 (1-2) Urine Color (Yellow) Urine Appearance (Clear) Urine pH (5.0-8.0) Ur Specific [place] (1.005-1.030) Urine Protein (Negative) Urine Glucose (UA) (Negative) Urine Ketones (Negative) Urine Occult Blood (Negative) Urine Nitrite (Negative) Urine Bilirubin (Negative) Urine Urobilinogen (0.2-1.0) Ur Leukocyte Esterase (Negative) Urine RBC (0-5) /hpf Urine WBC (0-5) /hpf Ur Squamous Epith Cells (0-5) /hpf Amorphous Sediment (NOT SEEN) /hpf Urine Bacteria (FEW) /hpf Hyaline Casts (0-5) /lpf Urine Mucus (FEW) /hpf Salicylates (2.8-20) mg/dL Urine Opiates Screen (YRGUAL=777) Ur Buprenorphine Scrn (CUTOFF=10) Ur Oxycodone Screen (MKB5GA=833) Urine Methadone Screen (LWFYKR=393) Ur Propoxyphene Screen (SVXORR=471) Acetaminophen 0 L (10-30) ug/mL Ur Barbiturates Screen (EWPYRT=578) Ur Tricyclics Screen (OQEAOX=414) Ur Phencyclidine Scrn (CUTOFF=25) Ur Amphetamine Screen (NCMDJD=171) U Methamphetamines Scrn (KIZTNI=191) U Benzodiazepines Scrn (DCEHKE=225) U Cocaine Metab Screen (IIAGDN=332) U Marijuana (THC) Screen (CUTOFF=50) Ethyl Alcohol 0.00 (0.00) gm% 09/08/19 09/08/19 09/08/19 Range/Units 18:32 18:50 22:49 WBC (3.98-10.04) K/mm3 RBC (3.98-5.22) M/mm3 Hgb (11.2-15.7) gm/dl Hct (34.1-44.9) % MCV (79.4-94.8) fl MCH (25.6-32.2) pg MCHC (32.2-35.5) g/dl RDW Std Deviation (36.4-46.3) fL Plt Count (182-369) K/mm3 MPV (9.4-12.3) fl Neut % (Auto) (34.0-71.1) % Lymph % (Auto) (19.3-51.7) % [place] % (Auto) (4.7-12.5) % Eos % (Auto) (0.7-5.8) Baso % (Auto) (0.1-1.2) % Neut # (Auto) (1.56-6.13) K/mm3 Lymph # (Auto) (1.18-3.74) K/mm3 [place] # (Auto) (0.24-0.36) K/mm3 Eos # (Auto) (0.04-0.36) K/mm3 Baso # (Auto) (0.01-0.08) K/mm3 Sodium (136-145) mEq/L Potassium (3.5-5.1) mEq/L Chloride (98-107) mEq/L Carbon Dioxide (21-32) mEq/L Anion Gap (5-15) BUN (7-18) mg/dL Creatinine (0.55-1.02) mg/dL Est Cr Clr Drug Dosing mL/min Estimated GFR (MDRD) (>60) mL/min BUN/Creatinine Ratio (14-18) Glucose (74-106) mg/dL Calcium (8.5-10.1) mg/dL Magnesium (1.8-2.4) mg/dl Total Bilirubin (0.2-1.0) mg/dL AST (15-37) U/L ALT (14-59) U/L Alkaline Phosphatase (46-116) U/L Troponin I (0.00-0.056) ng/mL Total Protein (6.4-8.2) g/dl Albumin (3.4-5.0) g/dl Globulin gm/dL Albumin/Globulin Ratio (1-2) Urine Color Yellow (Yellow) Urine Appearance Cloudy H (Clear) Urine pH 5.5 (5.0-8.0) Ur Specific [place] > or = 1.030 (1.005-1.030) Urine Protein 1+ H (Negative) Urine Glucose (UA) Negative (Negative) Urine Ketones Negative (Negative) Urine Occult Blood Trace-lysed H (Negative) Urine Nitrite Negative (Negative) Urine Bilirubin 1+ H (Negative) Urine Urobilinogen 0.2 (0.2-1.0) Ur Leukocyte Esterase Negative (Negative) Urine RBC 0-5 (0-5) /hpf Urine WBC 0-5 (0-5) /hpf Ur Squamous Epith Cells 0-5 (0-5) /hpf Amorphous Sediment Many H (NOT SEEN) /hpf Urine Bacteria Few (FEW) /hpf Hyaline Casts 0-5 (0-5) /lpf Urine Mucus Moderate H (FEW) /hpf Salicylates 3.3 (2.8-20) mg/dL Urine Opiates Screen Negative (EURRQD=914) Ur Buprenorphine Scrn Negative (CUTOFF=10) Ur Oxycodone Screen Negative (FUA2MG=811) Urine Methadone Screen Negative (HSEEVM=321) Ur Propoxyphene Screen Negative (XMAQOL=113) Acetaminophen (10-30) ug/mL Ur Barbiturates Screen Negative (JXKDQJ=303) Ur Tricyclics Screen Presumptive positive H (SPNQDN=394) Ur Phencyclidine Scrn Negative (CUTOFF=25) Ur Amphetamine Screen Negative (AYUUJR=559) U Methamphetamines Scrn Negative (CAMCDG=998) U Benzodiazepines Scrn Negative (NWACYT=196) U Cocaine Metab Screen Negative (KFWWUI=067) U Marijuana (THC) Screen Presumptive positive H (CUTOFF=50) Ethyl Alcohol (0.00) gm% 09/09/19 Range/Units 04:14 WBC (3.98-10.04) K/mm3 RBC (3.98-5.22) M/mm3 Hgb (11.2-15.7) gm/dl Hct (34.1-44.9) % MCV (79.4-94.8) fl MCH (25.6-32.2) pg MCHC (32.2-35.5) g/dl RDW Std Deviation (36.4-46.3) fL Plt Count (182-369) K/mm3 MPV (9.4-12.3) fl Neut % (Auto) (34.0-71.1) % Lymph % (Auto) (19.3-51.7) % [place] % (Auto) (4.7-12.5) % Eos % (Auto) (0.7-5.8) Baso % (Auto) (0.1-1.2) % Neut # (Auto) (1.56-6.13) K/mm3 Lymph # (Auto) (1.18-3.74) K/mm3 [place] # (Auto) (0.24-0.36) K/mm3 Eos # (Auto) (0.04-0.36) K/mm3 Baso # (Auto) (0.01-0.08) K/mm3 Sodium 145 (136-145) mEq/L Potassium 5.0 D (3.5-5.1) mEq/L Chloride 111 H (98-107) mEq/L Carbon Dioxide 24 (21-32) mEq/L Anion Gap 15.0 (5-15) BUN 14 (7-18) mg/dL Creatinine 0.6 (0.55-1.02) mg/dL Est Cr Clr Drug Dosing 109.68 mL/min Estimated GFR (MDRD) > 60 (>60) mL/min BUN/Creatinine Ratio 23.3 H (14-18) Glucose 117 H (74-106) mg/dL Calcium 8.6 (8.5-10.1) mg/dL Magnesium 1.9 (1.8-2.4) mg/dl Total Bilirubin 0.7 (0.2-1.0) mg/dL AST 23 (15-37) U/L ALT 21 (14-59) U/L Alkaline Phosphatase 96 (46-116) U/L Troponin I < 0.017 (0.00-0.056) ng/mL Total Protein 7.1 (6.4-8.2) g/dl Albumin 3.6 (3.4-5.0) g/dl Globulin 3.5 gm/dL Albumin/Globulin Ratio 1.0 (1-2) Urine Color (Yellow) Urine Appearance (Clear) Urine pH (5.0-8.0) Ur Specific [place] (1.005-1.030) Urine Protein (Negative) Urine Glucose (UA) (Negative) Urine Ketones (Negative) Urine Occult Blood (Negative) Urine Nitrite (Negative) Urine Bilirubin (Negative) Urine Urobilinogen (0.2-1.0) Ur Leukocyte Esterase (Negative) Urine RBC (0-5) /hpf Urine WBC (0-5) /hpf Ur Squamous Epith Cells (0-5) /hpf Amorphous Sediment (NOT SEEN) /hpf Urine Bacteria (FEW) /hpf Hyaline Casts (0-5) /lpf Urine Mucus (FEW) /hpf Salicylates (2.8-20) mg/dL Urine Opiates Screen (LPJQOH=607) Ur Buprenorphine Scrn (CUTOFF=10) Ur Oxycodone Screen (QDQ3LI=677) Urine Methadone Screen (EKZCYP=808) Ur Propoxyphene Screen (LTSHAP=223) Acetaminophen (10-30) ug/mL Ur Barbiturates Screen (ZOCUDE=270) Ur Tricyclics Screen (VVJZQP=394) Ur Phencyclidine Scrn (CUTOFF=25) Ur Amphetamine Screen (INHBRK=659) U Methamphetamines Scrn (LILDQI=057) U Benzodiazepines Scrn (HFJYFQ=873) U Cocaine Metab Screen (OETEIT=406) U Marijuana (THC) Screen (CUTOFF=50) Ethyl Alcohol (0.00) gm% Med Orders - Current: Current Medications Sodium Chloride (Normal Saline) 1,000 mls @ 150 mls/hr IV ASDIRECTED HELGA Last Admin: 09/09/19 16:11 Dose: 150 mls/hr Lorazepam (Ativan) 1 mg IVPUSH Q1H PRN PRN Reason: Anxiety Last Admin: 09/09/19 14:44 Dose: 1 mg Lorazepam (Ativan) 2 mg IVPUSH Q1H PRN PRN Reason: Anxiety Last Admin: 09/09/19 16:39 Dose: 2 mg Miscellaneous Information (Remove Patch) 0 ea TRDERM DAILY [facility] Nicotine (Habitrol) 21 mg TRDERM DAILY [facility] Last Admin: 09/09/19 11:46 Dose: 21 mg Pantoprazole Sodium (Protonix Iv) 40 mg IVPUSH Q12H [facility] Last Admin: 09/09/19 06:34 Dose: 40 mg Sodium Chloride (Saline Flush) 10 ml FLUSH ASDIRECTED PRN PRN Reason: Keep Vein Open Last Admin: 09/08/19 20:04 Dose: 10 ml Discontinued Medications Haloperidol Lactate (Haldol) 5 mg IVPUSH ONETIME ONE Stop: 09/08/19 19:01 Last Admin: 09/08/19 19:03 Dose: 5 mg Haloperidol Lactate (Haldol) 5 mg IVPUSH ONETIME ONE Stop: 09/08/19 19:01 Last Admin: 09/08/19 19:03 Dose: Not Given Haloperidol Lactate (Haldol) Confirm Administered Dose 5 mg .ROUTE .STK-MED ONE Stop: 09/08/19 19:00 Last Admin: 09/08/19 19:02 Dose: Not Given Haloperidol Lactate (Haldol) 5 mg IVPUSH ONETIME ONE Stop: 09/08/19 20:04 Last Admin: 09/08/19 19:40 Dose: 5 mg Haloperidol Lactate (Haldol) 5 mg IM STAT ONE Stop: 09/09/19 16:49 Sodium Chloride (Normal Saline) 1,000 mls @ 999 mls/hr IV ASDIRECTED HELGA Last Admin: 09/08/19 18:32 Dose: 999 mls/hr Lactated Ringer's (Ringers, Lactated) 1,000 mls @ 150 mls/hr IV ASDIRECTED HEL[facility] Potassium Chloride 10 meq/ (Premix) 100 mls @ 100 mls/hr IV Q1H [facility] Stop: 09/09/19 02:59 Last Admin: 09/09/19 01:54 Dose: 100 mls/hr Lorazepam (Ativan) Confirm Administered Dose 2 mg .ROUTE .STK-MED ONE Stop: 09/08/19 20:31 Last Admin: 09/08/19 21:55 Dose: 1 mg Lorazepam (Ativan) 1 mg IVPUSH ONETIME ONE Stop: 09/08/19 20:35 Last Admin: 09/08/19 20:37 Dose: 1 mg Lorazepam (Ativan) Confirm Administered Dose 2 mg .ROUTE .STK-MED ONE Stop: 09/08/19 20:43 Last Admin: 09/08/19 21:57 Dose: 1 mg Lorazepam (Ativan) Confirm Administered Dose 2 mg .ROUTE .STK-MED ONE Stop: 09/08/19 20:53 Last Admin: 09/08/19 21:59 Dose: Not Given Pantoprazole Sodium (Protonix Iv) 40 mg IVPUSH ONETIME ONE Stop: 09/08/19 23:01 Last Admin: 09/08/19 22:45 Dose: 40 mg - Exam General: Sedated HEENT: Pupils Equal, EOMI, Mucous Membr. Moist/[place] Neck: Supple Lungs: Clear to Auscultation, Normal Respiratory Effort Cardiovascular: Regular Rate, Regular Rhythm GI/Abdominal Exam: Normal Bowel Sounds, Soft, Non-Tender, No Distention Extremities: Normal Inspection, Normal Range of Motion, Non-Tender, No Pedal Edema Skin: Warm, Dry, Intact Psy/Mental Status: Withdrawal Symptoms EKG INTERPRETATION EKG Date: 09/09/19 Time: 07:22 Rhythm: NSR Rate (Beats/Min): 73 [place]: Normal P-Wave: Present QRS: Other (Incomplete right bundle branch block) ST-T: Normal QT: Normal Sepsis Event Note - Evaluation Sepsis Screening Result: No Definite Risk - Focused Exam Vital Signs: Vital Signs Temp Resp BP Pulse Ox 09/09/19 16:00 98 F 18 118/52 L 96 09/09/19 12:00 98.7 F 16 115/76 97 09/09/19 08:00 98.4 F 16 134/75 97 Date Exam was Performed: 09/09/19 Time Exam was Performed: 16:53 - Problem List Review Problem List Initiated/Reviewed/Updated: Yes - My Orders Last 24 Hours: My Active Orders 09/08/19 20:45 Patient Status [ADT] Routine 09/08/19 21:59 LORazepam [Ativan] 1 mg IVPUSH Q1H PRN 09/08/19 22:00 Insert [place] Catheter [Insert Urinary Catheter] [OM.PC] Q24H 09/08/19 22:18 Oxygen Therapy [RC] PRN Up With Assistance [RC] ASDIRECTED Vital Signs [RC] Q4HR Resuscitation Status Routine 09/08/19 22:45 Sodium Chloride 0.9% [Normal Saline] 1,000 ml IV ASDIRECTED 09/09/19 01:27 LORazepam [Ativan] 2 mg IVPUSH Q1H PRN 09/09/19 02:42 Notify Provider Consults [RC] 0900 09/09/19 07:30 EKG Documentation Completion [RC] ASDIRECTED Pantoprazole [ProTONIX IV] 40 mg IVPUSH Q12H EKG 12 Lead [EK] Routine 09/09/19 11:30 Nicotine [Habitrol] 21 mg TRDERM DAILY 09/09/19 Lunch Regular Diet [DIET] 09/10/19 09:00 Remove Patch 0 ea TRDERM DAILY - Plan Plan:: Assessment * Medication overdose likely cyclobenzaprine * Patient is now approximately 24 hours since she took her benzodiazepine and continues to be aggressive. * Possibility of other drug use not known to staff. * Risk for cardiac arrhythmias is greatly diminished. * Found with 2 handfuls of cyclobenzaprine 5 mg likely approximately 20 pills. * Unknown if other medications including Advil or Cymbalta. * Received Haldol in the emergency room. * Sinus tachycardia * RSR prime/incomplete right bundle branch block pattern. * Poison control contacted by ER and recommended benzodiazepines for agitation. * Troponin less than 0.01 * Depression/possible suicide attempt * History of depression on Cymbalta * Patient stated that she was trying to harm herself. * Chronic knee pain on cyclobenzaprine * Hypokalemia Plan * Admit to ICU * Follow with poison control * Continue cardiac monitoring * Ativan for sedation * Patient will require continued IV medication for agitation. * If necessary will use Haldol 5 mg IV, but will try to avoid secondary to possible cardiac risk. Patient was given Haldol safely yesterday in the emergency room. * Consult psychiatry when awake * One-on-one nursing * N.p.o. until able to swallow then advance as tolerated. * Protonix for GI protection * CODE STATUS full code
[2019-09-09] MEDS ORDERED: HYDROmorphone 1 MG/ML Syringe IVPUSH PRN (17:55)
--- NOTE | 2019-09-09 20:23 | PCM.SN ---
- Free Text/Narrative Note: Called to the ICU secondary to patient continuing to be agitated at around 1645. Patient was given Haldol 5 mg IM secondary to an IV that infiltrated. She was also given previous to this Ativan. She continued to be agitated. Poison control called and recommended trial of physostigmine. Physostigmine 0.5 mg IV was pushed one time at 1838. Previous to this she did have some dilated pupils, dry mouth, she had visual hallucinations, and was agitated. After the physostigmine she did have some improvement in her mydriasis, dry mouth, visual hallucinations and confusion. Patient still was agitated. I decided not to give another dose because if there was not much of an improvement. Patient will continue to get Ativan for agitation and anxiety. The hope is to get her to settle down and rest/sleep overnight. Half-life of cyclobenzaprine can be as long as 37 hours.
[2019-09-09] MEDS ORDERED: Etomidate 2 MG/ML 20 ML SDV IVPUSH ONE (21:48)
[2019-09-09] MEDS ORDERED: Succinylcholine 200 MG/10 ML MDV IV ONE (21:49)
[2019-09-09] MEDS ORDERED: Succinylcholine/Normal Saline 100 MG/5 ML Syringe IV ONE (21:49)
[2019-09-09] MEDS ORDERED: Rocuronium 50 MG/5 ML Vial IVPUSH ONE (22:00)
--- NOTE | 2019-09-09 22:36 | PCM.SN ---
- Free Text/Narrative Note: Patient continued to have worsening anxiety and agitation. She continued to be combative. Patient was given increasing doses of Ativan without improvement. Patient appeared to get worsening symptoms associated with Ativan. Ultimately patient required enough Ativan that there was concern about protecting her airway. At this point it was decided to intubate and transfer the patient. Dr. Ayala at [facility] in [place], [place] agreed to accept her as a direct admit to the ICU..
--- NOTE | 2019-09-09 22:49 | PCM.DCSUM1 ---
Discharge Summary - Hospital Course HPI Initial Comments: 44-year-old female brought into the emergency department by EMS secondary to a drug overdose. Patient's and her had an argument and she went to the bathroom and slammed the door. He states he kicked the door and and she was found after taking a handful of Flexeril and maybe a few Advil. Flexeril was reported to be 5 mg tablets, and states that she probably took around 20 but he is not sure. When she presented to the emergency room she did state "wants to " and wanted to escape the pain from her chronic knee pain. She has a history of depression and is on Cymbalta, but her does not think she took any extra tonight. Patient also uses marijuana for pain. In the emergency room she was initially anxious but coherent and then suddenly started yelling, hallucinating, and yelling at people not present. Patient was then given Haldol 5 mg IV x2 to control her agitation. Once poison control was contacted it was noted that we should expect QT prolongation, agitation, and/or sedation. Flexeril's peak effect should occur approximately 6 hours and Cymbalta approximately 8 hours. They recommended minimum of 8 hours on cardiac monitoring. They also recommended using benzodiazepines for agitation. EKG done at 1951 showed sinus tachycardia with a ventricular rate of [address] depression in inferior anterolateral leads diffusely. Diagnosis: Stroke: No - Discharge Data Discharge Date: 09/09/19 Discharge Disposition: DC/Tfer to Acute Hospital 02 Condition: Good - Referral to Home Health Primary Care Physician: PCP Unknown - Patient Summary/Data Hospital Course: Patient required increasing amounts of Ativan and continued to have worsening agitation. Patient was given physostigmine with minimal if any improvement in her symptoms. Haldol was tried x1 with out benefit also. We did not want to use any more than 1 dose of Haldol because of potential QT prolongation. It became impossible to redirect her behavior and with increasing amounts of Ativan being required we elected to intubate patient to protect her airway and to facilitate transfer to [facility] in [place]. Dr. Ayala agreed to accept her to direct admit to the ICU. Dr. Kyler Bryson from the emergency department was consulted to do a rapid sequence intubation. Patient was then kept sedated and sent via fixed wing aircraft. - Discharge Plan *PRESCRIPTION DRUG MONITORING PROGRAM REVIEWED*: No *COPY OF PRESCRIPTION DRUG MONITORING REPORT IN PATIENT RACHEL: No Home Medications: Home Meds DULoxetine [Cymbalta] 120 mg PO DAILY 04/20/19 [History] Ibuprofen 800 mg PO Q6HR PRN 07/08/19 [History] Oxygen Therapy Mode: Mechanical Ventilation Patient Handouts: Self-Harming Behavior Information, Steps to Quit Smoking Referrals: PCP,Unknown [Primary Care Provider] - - Discharge Summary/Plan Comment DC Time >30 min.: Yes Discharge Summary/Plan Comment: Transfer to [facility] in [place] for definitive care. - General Info Date of Service: 09/09/19 Admission Dx/Problem (Free Text: Admission Diagnosis/Problem Admission Diagnosis/Problem Drug overdose - Patient Data Vitals - Most Recent: Last Vital Signs Temp 97.0 F 09/09/19 20:00 Pulse 80 09/09/19 04:00 Resp 18 09/09/19 20:00 BP 136/63 09/09/19 20:00 Pulse Ox 97 09/09/19 20:00 Weight - Most Recent: 181 lb 8 oz I&O - Last 24 hours: Intake & Output 09/09/19 09/09/19 09/09/19 06:59 14:59 22:59 Intake Total 1542 6 Output Total 380 180 Balance 1162 -180 1955 Lab Results - Last 24 hrs: Laboratory Results - last 24 hr 09/08/19 09/09/19 Range/Units 22:49 04:14 Sodium 145 (136-145) mEq/L Potassium 5.0 D (3.5-5.1) mEq/L Chloride 111 H (98-107) mEq/L Carbon Dioxide 24 (21-32) mEq/L Anion Gap 15.0 (5-15) BUN 14 (7-18) mg/dL Creatinine 0.6 (0.55-1.02) mg/dL Est Cr Clr Drug Dosing 109.68 mL/min Estimated GFR (MDRD) > 60 (>60) mL/min BUN/Creatinine Ratio 23.3 H (14-18) Glucose 117 H (74-106) mg/dL Calcium 8.6 (8.5-10.1) mg/dL Magnesium 1.9 (1.8-2.4) mg/dl Total Bilirubin 0.7 (0.2-1.0) mg/dL AST 23 (15-37) U/L ALT 21 (14-59) U/L Alkaline Phosphatase 96 (46-116) U/L Troponin I < 0.017 (0.00-0.056) ng/mL Total Protein 7.1 (6.4-8.2) g/dl Albumin 3.6 (3.4-5.0) g/dl Globulin 3.5 gm/dL Albumin/Globulin Ratio 1.0 (1-2) Urine Color Yellow (Yellow) Urine Appearance Cloudy H (Clear) Urine pH 5.5 (5.0-8.0) Ur Specific [place] > or = 1.030 (1.005-1.030) Urine Protein 1+ H (Negative) Urine Glucose (UA) Negative (Negative) Urine Ketones Negative (Negative) Urine Occult Blood Trace-lysed H (Negative) Urine Nitrite Negative (Negative) Urine Bilirubin 1+ H (Negative) Urine Urobilinogen 0.2 (0.2-1.0) Ur Leukocyte Esterase Negative (Negative) Urine RBC 0-5 (0-5) /hpf Urine WBC 0-5 (0-5) /hpf Ur Squamous Epith Cells 0-5 (0-5) /hpf Amorphous Sediment Many H (NOT SEEN) /hpf Urine Bacteria Few (FEW) /hpf Hyaline Casts 0-5 (0-5) /lpf Urine Mucus Moderate H (FEW) /hpf Med Orders - Current: Current Medications Hydromorphone HCl (Dilaudid) 1 mg IVPUSH Q1H PRN PRN Reason: Pain (severe 7-10) Sodium Chloride (Normal Saline) 1,000 mls @ 150 mls/hr IV ASDIRECTED HELGA Last Admin: 09/09/19 16:11 Dose: 150 mls/hr Lorazepam (Ativan) 1 mg IVPUSH Q1H PRN PRN Reason: Anxiety Last Admin: 09/09/19 14:44 Dose: 1 mg Lorazepam (Ativan) 2 mg IVPUSH Q1H PRN PRN Reason: Anxiety Last Admin: 09/09/19 20:31 Dose: 2 mg Miscellaneous Information (Remove Patch) 0 ea TRDERM DAILY [facility] Nicotine (Habitrol) 21 mg TRDERM DAILY [facility] Last Admin: 09/09/19 11:46 Dose: 21 mg Pantoprazole Sodium (Protonix Iv) 40 mg IVPUSH Q12H [facility] Last Admin: 09/09/19 19:44 Dose: 40 mg Sodium Chloride (Saline Flush) 10 ml FLUSH ASDIRECTED PRN PRN Reason: Keep Vein Open Last Admin: 09/08/19 20:04 Dose: 10 ml Discontinued Medications Haloperidol Lactate (Haldol) 5 mg IVPUSH ONETIME ONE Stop: 09/08/19 19:01 Last Admin: 09/08/19 19:03 Dose: 5 mg Haloperidol Lactate (Haldol) 5 mg IVPUSH ONETIME ONE Stop: 09/08/19 19:01 Last Admin: 09/08/19 19:03 Dose: Not Given Haloperidol Lactate (Haldol) Confirm Administered Dose 5 mg .ROUTE .STK-MED ONE Stop: 09/08/19 19:00 Last Admin: 09/08/19 19:02 Dose: Not Given Haloperidol Lactate (Haldol) 5 mg IVPUSH ONETIME ONE Stop: 09/08/19 20:04 Last Admin: 09/08/19 19:40 Dose: 5 mg Haloperidol Lactate (Haldol) 5 mg IM STAT ONE Stop: 09/09/19 16:49 Last Admin: 09/09/19 16:52 Dose: 5 mg Sodium Chloride (Normal Saline) 1,000 mls @ 999 mls/hr IV ASDIRECTED [facility] Last Admin: 09/08/19 18:32 Dose: 999 mls/hr Lactated Ringer's (Ringers, Lactated) 1,000 mls @ 150 mls/hr IV ASDIRECTED [facility] Potassium Chloride 10 meq/ (Premix) 100 mls @ 100 mls/hr IV Q1H [facility] Stop: 09/09/19 02:59 Last Admin: 09/09/19 01:54 Dose: 100 mls/hr Propofol (Diprivan 100 Ml) Confirm Administered Dose 100 mls @ as directed .ROUTE .STK-MED ONE Stop: 09/09/19 21:45 Lorazepam (Ativan) Confirm Administered Dose 2 mg .ROUTE .STK-MED ONE Stop: 09/08/19 20:31 Last Admin: 09/08/19 21:55 Dose: 1 mg Lorazepam (Ativan) 1 mg IVPUSH ONETIME ONE Stop: 09/08/19 20:35 Last Admin: 09/08/19 20:37 Dose: 1 mg Lorazepam (Ativan) Confirm Administered Dose 2 mg .ROUTE .STK-MED ONE Stop: 09/08/19 20:43 Last Admin: 09/08/19 21:57 Dose: 1 mg Lorazepam (Ativan) Confirm Administered Dose 2 mg .ROUTE .STK-MED ONE Stop: 09/08/19 20:53 Last Admin: 09/08/19 21:59 Dose: Not Given Pantoprazole Sodium (Protonix Iv) 40 mg IVPUSH ONETIME ONE Stop: 09/08/19 23:01 Last Admin: 09/08/19 22:45 Dose: 40 mg Physostigmine Salicylate (Physostigmine) 0.5 mg IVPUSH ONETIME ONE Stop: 09/09/19 17:55 Last Admin: 09/09/19 18:38 Dose: 0.5 mg Physostigmine Salicylate (Physostigmine) 0.5 mg IVPUSH ONETIME ONE Stop: 09/09/19 19:10 - Exam Quality Assessment: Reports: Supplemental Oxygen (Intubated) General: Reports: Sedated Lungs: Reports: Clear to Auscultation, Normal Respiratory Effort Cardiovascular: Reports: Regular Rate, Regular Rhythm GI/Abdominal Exam: Normal Bowel Sounds, Soft
--- NOTE | 2019-09-09 22:51 | PCM.PRNOTE ---
- Free Text/Narrative Note: I was asked by Dr Keyes to come evaluate the patient for possible intubation. The patient was admitted for an overdose. She was requiring multiple doses of benzos to keep her sedated. There is concern she may loose her airway. I will intubate to secure her airway. I ordered etomidate 20mg IV and succinylcholine 120mg IV. I used a 3 blade on the glide scope. She had a very dry oropharynx. The cords were visualized and I advanced a 7.5cm ET tube to 22 at the teeth. The balloon was inflated with 10mls of air. I did test the balloon earlier. I had good color change on the CO2 detector. She had no sounds over the epigastrium. She had equal lung sound. I also inserted an NG tube at 55 at the lips. Gurgling sounds were heard over the epigastrium. It was hooked to suction and gastric secretions were suctioned. The ET tube was secured along with the NG tube. I ordered a propofol drip at 10mcg/k/mn. The patient began to wake up so I ordered rocuronium 70mg IV. I put her on the vent with a rate of 12, tidal volume of 450, PEEP of 5 and an FiO2 of 40%. I did an x-ray and it did confirm ET tube placement and NG tube placement. The patient will be transferred to [facility] by [facility]
[2019-09-10 01:01] VITALS: BP 134/83; PULSE 92
--- NOTE | 2019-09-10 09:22 | CR ---
Chest: Portable supine view of the chest was obtained. Comparison: No prior chest imaging is available. Endotracheal tube is seen. Tip of the endotracheal tube lies about 3.4 cm above the jose at the inferior level of the clavicles in satisfactory position. Nasogastric tube is seen with tip lying within the stomach. Heart size and mediastinum are normal. Lungs show no acute parenchymal change. Previous cervical spine surgery is noted. Surgical clips are noted from prior cholecystectomy. Impression: 1. Satisfactory position of endotracheal tube and nasogastric tube. 2. Other findings believed to be incidental. 3. Nothing acute is seen. Diagnostic code #3 This report was dictated in [place] Standard Time I agree with preliminary report from ad, finalized on 09/09/19, 11:44 PM Central Time
== END 2019-09-09 23:10 | DRG 918 ==
LOC: JD.ED 18:13 → JD.ICU 20:47 → EEVIPCON 20:47
PROVIDERS: ADMIT Family Medicine; ATTEND Family Medicine
PROC: 0BH17EZ Insertion of Endotracheal Airway into Trachea, Via Natural or Artificial Opening (ICD-10-PCS; principal; 2019-09-09)
PROC: 5A1935Z Respiratory Ventilation, Less than 24 Consecutive Hours (ICD-10-PCS; 2019-09-09)
DX: T48.1X2A Poisoning by skeletal muscle relaxants [neuromuscular blocking agents], intentional self-harm, initial encounter (principal); T39.312A Poisoning by propionic acid derivatives, intentional self-harm, initial encounter; R44.1 Visual hallucinations; G89.29 Other chronic pain; F32.9 Major depressive disorder, single episode, unspecified; F41.9 Anxiety disorder, unspecified; R45.1 Restlessness and agitation; R00.0 Tachycardia, unspecified; M54.2 Cervicalgia; F17.210 Nicotine dependence, cigarettes, uncomplicated; M25.561 Pain in right knee; E87.6 Hypokalemia; Z91.018 Allergy to other foods; Z88.1 Allergy status to other antibiotic agents; Z88.8 Allergy status to other drugs, medicaments and biological substances; Z79.899 Other long term (current) drug therapy; Z98.51 Tubal ligation status; Z90.49 Acquired absence of other specified parts of digestive tract; Z91.81 History of falling; M25.562 Pain in left knee
CPT/HCPCS: 36415; 51702; 80053; 80306; 81001; 83735; 84484; 85025; 93005; 93010; 94002; 96361; 96374; 96375; 96376; 99284; 99285-25; A9270-GY; C9113; G0480; J0330; J1630; J2060; J2704; J3480; J3490; J7030

== ENCOUNTER 2020-02-22 15:31 | Emergency (ER) | payer SELFPAY ==
[2020-02-22 15:36] VITALS: BP 120/70; PULSE 61
--- NOTE | 2020-02-22 17:08 | EDM.PDOCBH ---
ED HPI GENERAL MEDICAL PROBLEM - General Chief Complaint: Behavioral/Psych Stated Complaint: [facility] Time Seen by Provider: 02/22/20 15:31 - History of Present Illness INITIAL COMMENTS - FREE TEXT/NARRATIVE: 44-year-old female brought in by EMS with an apparent psychotic episode. According to the patient's daughter and her patient was doing well but all of a sudden had a unusual stare at the the patient started calling her her father and started hitting on him. The patient also recognized his her daughter to be her mother. In 1 of the EMS was a cousin that she has not seen in over 20 years. The patient was given 5 mg of Haldol in route and is doing much better at time of arrival here she is wanted to go home and is disoriented initially to what is actually going on. However she is remained cooperative and follows simple commands. - Related Data Allergies Allergy/AdvReac Type Severity Reaction Status Date / Time coconut Allergy Hives Verified 09/09/19 01:50 doxycycline Allergy Hives Verified 09/09/19 01:50 duloxetine [From Cymbalta] Allergy Hives Verified 09/09/19 01:50 venlafaxine [From Effexor] Allergy Other Verified 09/09/19 01:50 prednisone AdvReac Arrhythmias Verified 09/09/19 11:11 Home Meds: Home Meds DULoxetine [Cymbalta] 120 mg PO DAILY 04/20/19 [History] Ibuprofen 800 mg PO Q6HR PRN 07/08/19 [History] Past Medical History Other HEENT History: nystagmus Cardiovascular History: Reports: Heart Murmur Gastrointestinal History: Reports: Other (See Below) Other Gastrointestinal History: certain foods cause issues from gallladder removed 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: Other QA TEST ANALYST History: 3 vag del Musculoskeletal History: Reports: Neck Pain, Chronic, Other (See Below) Other Musculoskeletal History: fusion to neck in January 2016 in [place] Neurological History: Reports: Other (See Below) Other Neuro History: nerve pain in bilaeral arms before neck fusion Psychiatric History: Reports: Anxiety, Depression, Suicide Attempt Other Psychiatric History: 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 - Past Surgical History GI Surgical History: Reports: Cholecystectomy Female Surgical History: Reports: Tubal Ligation Neurological Surgical History: Reports: C-Spine Social & Family History - Family History Neurological: Reports: Alzheimers Disease Psychiatric: Reports: Anxiety, Depression Endocrine/Metabolic: Reports: Diabetes, type II - Tobacco Use Smoking Status *Q: Current Every Day Smoker Years of Tobacco use: 30 Packs/Tins Daily: 1 - Caffeine Use Caffeine Use: Reports: Coffee - Living Situation & Occupation Living situation: Reports: Occupation: Unemployed ED ROS GENERAL - Review of Systems Review Of Systems: See Below Reason Not Obtained: Pain after she cleared and was back to baseline Constitutional: Reports: No Symptoms HEENT: Reports: No Symptoms Respiratory: Reports: No Symptoms Cardiovascular: Reports: No Symptoms GI/Abdominal: Reports: No Symptoms : Reports: No Symptoms, Other (She has difficult hot flashes at times) Musculoskeletal: Reports: No Symptoms Skin: Reports: No Symptoms Neurological: Reports: No Symptoms Psychiatric: Reports: Anxiety, Confusion (She was initially confused but this did completely clear), Depression. Denies: Homicidal Ideation, Suicidal Ideation Hematologic/Lymphatic: Reports: No Symptoms Immunologic: Reports: No Symptoms ED EXAM, BEHAVIORAL HEALTH - Physical Exam Exam: See Below Exam Limited By: No Limitations General Appearance: Alert, No Apparent Distress, Other (Cooperative during the initial exam sometimes slow to answer) Eye Exam: Bilateral Eye: Normal Inspection Ears: Normal External Exam, Normal Canal, Hearing Grossly Normal, Normal TMs Nose: Normal Inspection, Normal Mucosa, No Blood Throat/Mouth: Normal Inspection, Normal Lips, Normal Teeth, Normal Gums, Normal Oropharynx, Normal Voice, No Airway Compromise Head: Atraumatic, Normocephalic Neck: No: Lymphadenopathy (L), Lymphadenopathy (R) Respiratory/Chest: No Respiratory Distress, Lungs Clear, Normal Breath Sounds Cardiovascular: Regular Rate, Rhythm, No Edema, No Murmur GI/Abdominal: Normal Bowel Sounds, Soft, Non-Tender Back Exam: Normal Inspection. No: CVA Tenderness (L), CVA Tenderness (R) Extremities: Normal Inspection, No Pedal Edema Neurological: Alert, Normal Mood/Affect, Normal Cognition, Other (Done after she cleared she is oriented to person place time date location current events.) Psychiatric: Other (See history of present illness) Skin Exam: Warm, Dry, Intact COURSE, BEHAVIORAL HEALTH COMP - Course Vital Signs: Last Vital Signs Temp 36.1 C 02/22/20 15:32 Pulse 61 02/22/20 15:32 Resp 18 02/22/20 15:32 BP 120/70 02/22/20 15:32 Pulse Ox 95 02/22/20 15:32 Orders, Labs, Meds: Active Orders 24 hr Category Date Time Status EKG Documentation Completion [RC] STAT Care 02/22/20 15:57 Active Laboratory Tests 02/22/20 02/22/20 02/22/20 Range/Units 16:21 16:21 16:25 WBC 7.56 (3.98-10.04) K/mm3 RBC 4.43 (3.98-5.22) M/mm3 Hgb 13.4 D (11.2-15.7) gm/dl Hct 40.7 (34.1-44.9) % MCV 91.9 (79.4-94.8) fl MCH 30.2 (25.6-32.2) pg MCHC 32.9 (32.2-35.5) g/dl RDW Std Deviation 47.6 H (36.4-46.3) fL Plt Count 231 (182-369) K/mm3 MPV 10.7 (9.4-12.3) fl Neut % (Auto) 60.8 (34.0-71.1) % Lymph % (Auto) 27.9 (19.3-51.7) % [place] % (Auto) 9.4 (4.7-12.5) % Eos % (Auto) 1.2 (0.7-5.8) Baso % (Auto) 0.3 (0.1-1.2) % Neut # (Auto) 4.60 (1.56-6.13) K/mm3 Lymph # (Auto) 2.11 (1.18-3.74) K/mm3 [place] # (Auto) 0.71 H (0.24-0.36) K/mm3 Eos # (Auto) 0.09 (0.04-0.36) K/mm3 Baso # (Auto) 0.02 (0.01-0.08) K/mm3 Sodium 143 (136-145) mEq/L Potassium 3.6 (3.5-5.1) mEq/L Chloride 106 (98-107) mEq/L Carbon Dioxide 26 (21-32) mEq/L Anion Gap 14.6 (5-15) BUN 9 (7-18) mg/dL Creatinine 0.7 (0.55-1.02) mg/dL Est Cr Clr Drug Dosing 94.01 mL/min Estimated GFR (MDRD) > 60 (>60) mL/min BUN/Creatinine Ratio 12.9 L (14-18) Glucose 98 (74-106) mg/dL Calcium 9.0 (8.5-10.1) mg/dL Total Bilirubin 0.6 (0.2-1.0) mg/dL AST 15 (15-37) U/L ALT 18 (14-59) U/L Alkaline Phosphatase 112 (46-116) U/L Total Protein 7.3 (6.4-8.2) g/dl Albumin 3.5 (3.4-5.0) g/dl Globulin 3.8 gm/dL Albumin/Globulin Ratio 0.9 L (1-2) TSH 3rd Generation 1.792 (0.358-3.74) uIU/mL Urine Color Yellow (Yellow) Urine Appearance Clear (Clear) Urine pH 6.0 (5.0-8.0) Ur Specific [place] > or = 1.030 (1.005-1.030) Urine Protein Trace H (Negative) Urine Glucose (UA) Negative (Negative) Urine Ketones Negative (Negative) Urine Occult Blood Negative (Negative) Urine Nitrite Negative (Negative) Urine Bilirubin 1+ H (Negative) Urine Urobilinogen 0.2 (0.2-1.0) Ur Leukocyte Esterase Negative (Negative) Urine RBC 0-5 (0-5) /hpf Urine WBC 0-5 (0-5) /hpf Ur Squamous Epith Cells 10-20 H (0-5) /hpf Urine Bacteria Moderate H (FEW) /hpf Urine Mucus Moderate H (FEW) /hpf Urine HCG, Qual (NEGATIVE) Urine Opiates Screen (NKIPFH=271) Ur Buprenorphine Scrn (CUTOFF=10) Ur Oxycodone Screen (EXV9XJ=594) Urine Methadone Screen (WCCWYQ=087) Ur Propoxyphene Screen (BWKDKZ=164) Ur Barbiturates Screen (QJPOAM=877) Ur Tricyclics Screen (QMIATJ=957) Ur Phencyclidine Scrn (CUTOFF=25) Ur Amphetamine Screen (DXNOZD=071) U Methamphetamines Scrn (KOAYNQ=858) U Benzodiazepines Scrn (RBWUME=063) U Cocaine Metab Screen (MHOWHF=961) U Marijuana (THC) Screen (CUTOFF=50) Ethyl Alcohol 0.00 (0.00) gm% 02/22/20 02/22/20 Range/Units 16:25 16:25 WBC (3.98-10.04) K/mm3 RBC (3.98-5.22) M/mm3 Hgb (11.2-15.7) gm/dl Hct (34.1-44.9) % MCV (79.4-94.8) fl MCH (25.6-32.2) pg MCHC (32.2-35.5) g/dl RDW Std Deviation (36.4-46.3) fL Plt Count (182-369) K/mm3 MPV (9.4-12.3) fl Neut % (Auto) (34.0-71.1) % Lymph % (Auto) (19.3-51.7) % [place] % (Auto) (4.7-12.5) % Eos % (Auto) (0.7-5.8) Baso % (Auto) (0.1-1.2) % Neut # (Auto) (1.56-6.13) K/mm3 Lymph # (Auto) (1.18-3.74) K/mm3 [place] # (Auto) (0.24-0.36) K/mm3 Eos # (Auto) (0.04-0.36) K/mm3 Baso # (Auto) (0.01-0.08) K/mm3 Sodium (136-145) mEq/L Potassium (3.5-5.1) mEq/L Chloride (98-107) mEq/L Carbon Dioxide (21-32) mEq/L Anion Gap (5-15) BUN (7-18) mg/dL Creatinine (0.55-1.02) mg/dL Est Cr Clr Drug Dosing mL/min Estimated GFR (MDRD) (>60) mL/min BUN/Creatinine Ratio (14-18) Glucose (74-106) mg/dL Calcium (8.5-10.1) mg/dL Total Bilirubin (0.2-1.0) mg/dL AST (15-37) U/L ALT (14-59) U/L Alkaline Phosphatase (46-116) U/L Total Protein (6.4-8.2) g/dl Albumin (3.4-5.0) g/dl Globulin gm/dL Albumin/Globulin Ratio (1-2) TSH 3rd Generation (0.358-3.74) uIU/mL Urine Color (Yellow) Urine Appearance (Clear) Urine pH (5.0-8.0) Ur Specific [place] (1.005-1.030) Urine Protein (Negative) Urine Glucose (UA) (Negative) Urine Ketones (Negative) Urine Occult Blood (Negative) Urine Nitrite (Negative) Urine Bilirubin (Negative) Urine Urobilinogen (0.2-1.0) Ur Leukocyte Esterase (Negative) Urine RBC (0-5) /hpf Urine WBC (0-5) /hpf Ur Squamous Epith Cells (0-5) /hpf Urine Bacteria (FEW) /hpf Urine Mucus (FEW) /hpf Urine HCG, Qual Negative (NEGATIVE) Urine Opiates Screen Negative (BCPTKR=848) Ur Buprenorphine Scrn Negative (CUTOFF=10) Ur Oxycodone Screen Negative (SET5ZN=535) Urine Methadone Screen Negative (RQFJYO=066) Ur Propoxyphene Screen Negative (OZFJDP=931) Ur Barbiturates Screen Negative (MLVMGR=524) Ur Tricyclics Screen Negative (BNFADM=770) Ur Phencyclidine Scrn Negative (CUTOFF=25) Ur Amphetamine Screen Negative (LJNCWR=436) U Methamphetamines Scrn Negative (YPPDSY=081) U Benzodiazepines Scrn Presumptive positive H (MDHMIJ=386) U Cocaine Metab Screen Negative (LQGHYA=593) U Marijuana (THC) Screen Presumptive positive H (CUTOFF=50) Ethyl Alcohol (0.00) gm% Medications Discontinued Medications Generic Name Dose Route Start Last Admin Trade Name Freq PRN Reason Stop Dose Admin Haloperidol 5 mg 02/22/20 18:59 Haldol PO 02/22/20 19:00 ONETIME ONE Re-Assessment/Re-Exam: Discussed patient's case with Dr. Dockery and during this call nursing informed me that the patient was back to normal. All the labs back at this point are her CBC which is unremarkable. Toxicology and all that is pending. The patient has follow-up with Dr. Dockery this coming Sunday. Were awaiting the rest of the labs. I did discuss situation with the who is very comfortable taking the patient home the household is safe he has knives that are locked up no guns in the house and does not feel that her is any threatening. The patient denies any suicidal wishes or thoughts. Patient is oriented to person place and location and is aware of recent current events. Discharge vs Psych Eval/Treatment:: 02/22/20 19:04 He is to do well she still wants to go home the is still willing to take her home discussed all the lab results with Dr. Dockery who thinks going home is the best option for the patient the patient will be started on Haldol 5 mg daily we will give her a pill to take tomorrow and then then the patient will visit with Dr. Dockery on Sunday and determine if she needs to stay on this this might help her sleep and another is been a big problem as she has had sleeping difficulties for the last couple of weeks.. Departure - Departure Time of Disposition: 19:05 Disposition: Home, Self-Care 01 Clinical Impression: Depressive disorder, Anxiety, Psychosis, transient - Discharge Information Referrals: PCP,Unknown [Ordering Only Provider] - Forms: ED Department Discharge Additional Instructions: Return to the emergency room with any questions problems or worsening symptoms. Return immediately with change in behavior suicidal thoughts or thoughts of wishing to hurt someone else. Follow-up with Dr. Dockery on Sunday as already scheduled. You have been given a tablet of Haldol take this tomorrow afternoon or early evening. Sepsis Event Note - Evaluation Sepsis Screening Result: No Definite Risk - Focused Exam Vital Signs: Vital Signs Temp Pulse Resp BP Pulse Ox 02/22/20 15:32 36.1 C 61 18 120/70 95 Date Exam was Performed: 02/22/20 Time Exam was Performed: 19:03 - My Orders Last 24 Hours: My Active Orders 02/22/20 15:57 EKG Documentation Completion [RC] STAT - Assessment/Plan Last 24 Hours: My Active Orders 02/22/20 15:57 EKG Documentation Completion [RC] STAT
[2020-02-22] MEDS ORDERED: Haloperidol 5 MG Tab PO ONE (18:59)
== END 2020-02-22 19:12 | disposition home or self-care (01) ==
LOC: JD.ED 15:31
DX: F32.9 Major depressive disorder, single episode, unspecified (principal); F41.9 Anxiety disorder, unspecified; F23 Brief psychotic disorder; Z91.018 Allergy to other foods; Z88.8 Allergy status to other drugs, medicaments and biological substances; Z79.899 Other long term (current) drug therapy; F17.210 Nicotine dependence, cigarettes, uncomplicated
CPT/HCPCS: 36415; 80053; 80306; 80307; 81001; 81025; 84443; 85025; 93005; 99285; A9270; 99283

== ENCOUNTER 2020-04-04 10:27 | Emergency (ER) | payer SELFPAY ==
[2020-04-04 10:37] VITALS: BP 131/79; PULSE 80
[2020-04-04] MEDS ORDERED: Diazepam 5 MG Tab PO ONE (11:05)
--- NOTE | 2020-04-04 11:48 | EDM.PDOCBH ---
ED HPI GENERAL MEDICAL PROBLEM - General Chief Complaint: Behavioral/Psych Stated Complaint: ANXIETY Time Seen by Provider: 04/04/20 10:50 Source of Information: Reports: Patient History Limitations: Reports: No Limitations - History of Present Illness INITIAL COMMENTS - FREE TEXT/NARRATIVE: The patient presents with anxiety. She has a history of this and she sees Dr Dockery. She recently saw him and he did some medication changes. She says she feels worse. She is anxious and crying. She has no depressive symptoms and she is not suicidal. She has no other symptoms such as fever, chills, cough, congestion, runny nose, abdominal pain, nausea or vomiting. Onset: Gradual Duration: Day(s): Severity: Moderate Improves with: Reports: None Worsens with: Reports: None Associated Symptoms: Reports: No Other Symptoms - Related Data Allergies Allergy/AdvReac Type Severity Reaction Status Date / Time coconut Allergy Hives Verified 09/09/19 01:50 doxycycline Allergy Hives Verified 09/09/19 01:50 duloxetine [From Cymbalta] Allergy Hives Verified 09/09/19 01:50 venlafaxine [From Effexor] Allergy Other Verified 09/09/19 01:50 prednisone AdvReac Arrhythmias Verified 09/09/19 11:11 Home Meds: Home Meds DULoxetine [Cymbalta] 60 mg PO DAILY 04/04/20 [History] LORazepam [Ativan] 1 mg PO Q4HR PRN 04/04/20 [History] Progesterone, Micronized [Progesterone] 100 mg PO DAILY 04/04/20 [History] estradioL [Elvira] 1 patch TOP DAILY 04/04/20 [History] fluvoxaMINE 50 mg PO DAILY 04/04/20 [History] haloperidoL [Haldol] 5 mg PO DAILY 04/04/20 [History] Past Medical History Other HEENT History: nystagmus Cardiovascular History: Reports: Heart Murmur Gastrointestinal History: Reports: Other (See Below) Other Gastrointestinal History: certain foods cause issues from gallladder removed 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 History: 3 vag del Musculoskeletal History: Reports: Neck Pain, Chronic, Other (See Below) Other Musculoskeletal History: fusion to neck in January 2016 in [place] Neurological History: Reports: Other (See Below) Other Neuro History: nerve pain in bilaeral arms before neck fusion Psychiatric History: Reports: Anxiety, Depression, Suicide Attempt Other Psychiatric History: 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 - Past Surgical History GI Surgical History: Reports: Cholecystectomy Female Surgical History: Reports: Tubal Ligation Neurological Surgical History: Reports: C-Spine Social & Family History - Family History Family Medical History: Noncontributory Neurological: Reports: Alzheimers Disease Psychiatric: Reports: Anxiety, Depression Endocrine/Metabolic: Reports: Diabetes, type II - Tobacco Use Smoking Status *Q: Current Every Day Smoker Years of Tobacco use: 20 Packs/Tins Daily: 1 - Caffeine Use Caffeine Use: Reports: Coffee - Living Situation & Occupation Living situation: Reports: Occupation: Unemployed ED ROS GENERAL - Review of Systems Review Of Systems: See Below Constitutional: Reports: No Symptoms HEENT: Reports: No Symptoms Respiratory: Reports: No Symptoms Cardiovascular: Reports: No Symptoms Endocrine: Reports: No Symptoms GI/Abdominal: Reports: No Symptoms : Reports: No Symptoms Musculoskeletal: Reports: No Symptoms Skin: Reports: No Symptoms Neurological: Reports: No Symptoms Psychiatric: Reports: Anxiety ED EXAM, BEHAVIORAL HEALTH - Physical Exam Exam: See Below Exam Limited By: No Limitations General Appearance: Alert, No Apparent Distress Ears: Normal External Exam Nose: Normal Inspection Head: Atraumatic, Normocephalic Neck: Normal Inspection Respiratory/Chest: No Respiratory Distress, Lungs Clear, Normal Breath Sounds Cardiovascular: Regular Rate, Rhythm, No Edema, No Murmur GI/Abdominal: Soft, Non-Tender, No Organomegaly, No Mass Rectal (Female) Exam: Normal Exam Back Exam: Normal Inspection COURSE, BEHAVIORAL HEALTH COMP - Course Vital Signs: Last Vital Signs Temp 98.4 F 04/04/20 10:35 Pulse 80 04/04/20 10:35 Resp 16 04/04/20 10:35 BP 131/79 04/04/20 10:35 Pulse Ox 97 04/04/20 10:35 Orders, Labs, Meds: Medications Discontinued Medications Generic Name Dose Route Start Last Admin Trade Name Freq PRN Reason Stop Dose Admin Diazepam 5 mg 04/04/20 11:05 04/04/20 11:10 Valium. PO 04/04/20 11:06 5 mg ONETIME ONE Administration Re-Assessment/Re-Exam: I ordered some valium 5mg PO. I called Dr Dockery and he wanted me to stop he cymbalta and go up with her fluvoxamine to 100mg. He also wanted her to take ativan 2mg BID and go up with her haldol to 10mg daily. She felt better after the valium. Departure - Departure Time of Disposition: 11:50 Disposition: Home, Self-Care 01 Condition: Good Clinical Impression: Anxiety - Discharge Information *PRESCRIPTION DRUG MONITORING PROGRAM REVIEWED*: Not Applicable *COPY OF PRESCRIPTION DRUG MONITORING REPORT IN PATIENT RACHEL: Not Applicable Referrals: Kyler Dockery MD [Primary Care Provider] - 2 Days Forms: ED Department Discharge Additional Instructions: Stop taking the cymbalta. Go up to Fluvoxamine 100mg. Take ativan 2mg 2 times per day. Take haldol 10mg daily. Call Dr Dockery this week to update him on how you are doing. Please return if you are worse. Sepsis Event Note (ED) - Evaluation Sepsis Screening Result: No Definite Risk - Focused Exam Vital Signs: Vital Signs Temp Pulse Resp BP Pulse Ox 04/04/20 10:35 98.4 F 80 16 131/79 97
== END 2020-04-04 12:16 | disposition home or self-care (01) ==
LOC: JD.ED 10:27
DX: F41.9 Anxiety disorder, unspecified (principal); F32.9 Major depressive disorder, single episode, unspecified; F17.210 Nicotine dependence, cigarettes, uncomplicated; Z91.018 Allergy to other foods; Z88.8 Allergy status to other drugs, medicaments and biological substances; Z79.899 Other long term (current) drug therapy
CPT/HCPCS: 99283; A9270

== ENCOUNTER 2020-04-11 15:14 | Emergency (ER) | payer SELFPAY | END 2020-04-11 18:07 | LOC: JD.ED 15:14 | DX: Z53.21 Procedure and treatment not carried out due to patient leaving prior to being seen by health care provider (principal) ==

== ENCOUNTER 2020-05-27 17:02 | Emergency (ER) | payer SELFPAY ==
[2020-05-27 17:24] VITALS: BP 129/74; PULSE 96
[2020-05-27] MEDS ORDERED: Sodium Chloride 0.9% 10 ML Syringe FLUSH PRN (17:34)
[2020-05-27] MEDS ORDERED: Sodium Chloride 0.9% 1,000 ML IV SCH (17:45)
--- NOTE | 2020-05-27 17:48 | EDM.PDOC ---
ED HPI GENERAL MEDICAL PROBLEM - General Chief Complaint: General Stated Complaint: UNCONTROLABLE SHIVERING POSSIBLE MED SIDE EFFECT Time Seen by Provider: 05/27/20 17:34 Source of Information: Reports: Patient History Limitations: Reports: No Limitations - History of Present Illness INITIAL COMMENTS - FREE TEXT/NARRATIVE: Patient is a 44-year-old female who presents to the emergency department with concerns of having a reaction to her medications. Patient states that she was started on clomipramine a while back, but that her dose was increased 3 days ago. This morning she developed tremors of her lower extremities. Initially the tremors subsided, however she currently has a very faint tremor of her left lower extremity. States that she can try to contact her psychiatrist, Dr. Dockery prior to coming to the ER, however she was unable to speak with him. She denies any chest pain, shortness of breath, or rash. - Related Data Allergies Allergy/AdvReac Type Severity Reaction Status Date / Time coconut Allergy Hives Verified 09/09/19 01:50 doxycycline Allergy Hives Verified 09/09/19 01:50 duloxetine [From Cymbalta] Allergy Hives Verified 09/09/19 01:50 venlafaxine [From Effexor] Allergy Other Verified 09/09/19 01:50 prednisone AdvReac Arrhythmias Verified 09/09/19 11:11 Home Meds: Home Meds DULoxetine [Cymbalta] 60 mg PO DAILY 04/04/20 [History] LORazepam [Ativan] 1 mg PO Q4HR PRN 04/04/20 [History] Progesterone, Micronized [Progesterone] 100 mg PO DAILY 04/04/20 [History] estradioL [Elvira] 1 patch TOP DAILY 04/04/20 [History] fluvoxaMINE 50 mg PO DAILY 04/04/20 [History] haloperidoL [Haldol] 5 mg PO DAILY 04/04/20 [History] Past Medical History Other HEENT History: nystagmus Cardiovascular History: Reports: Heart Murmur Gastrointestinal History: Reports: Other (See Below) Other Gastrointestinal History: certain foods cause issues from gallladder removed BID CLERK History: Reports: Other BID CLERK History: 3 vag del Musculoskeletal History: Reports: Neck Pain, Chronic, Other (See Below) Other Musculoskeletal History: fusion to neck in January 2016 in [place] Neurological History: Reports: Other (See Below) Other Neuro History: nerve pain in bilaeral arms before neck fusion Psychiatric History: Reports: Anxiety, Depression, Suicide Attempt Other Psychiatric History: 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 - Past Surgical History GI Surgical History: Reports: Cholecystectomy Female Surgical History: Reports: Tubal Ligation Neurological Surgical History: Reports: C-Spine Social & Family History - Family History Family Medical History: Noncontributory Neurological: Reports: Alzheimers Disease Psychiatric: Reports: Anxiety, Depression Endocrine/Metabolic: Reports: Diabetes, type II - Tobacco Use Smoking Status *Q: Current Every Day Smoker Years of Tobacco use: 25 Packs/Tins Daily: 1 - Caffeine Use Caffeine Use: Reports: Coffee - Living Situation & Occupation Living situation: Reports: Occupation: Unemployed ED ROS GENERAL - Review of Systems Review Of Systems: See Below Constitutional: Reports: No Symptoms. Denies: Fever, Chills HEENT: Reports: No Symptoms Respiratory: Reports: No Symptoms. Denies: Shortness of Breath Cardiovascular: Reports: No Symptoms. Denies: Chest Pain Endocrine: Reports: No Symptoms GI/Abdominal: Reports: No Symptoms. Denies: Abdominal Pain, Nausea, Vomiting : Reports: No Symptoms Musculoskeletal: Reports: No Symptoms Skin: Reports: No Symptoms Neurological: Reports: No Symptoms. Denies: Dizziness, Headache Psychiatric: Reports: Anxiety, Depression. Denies: Confusion, Hallucinations, Homicidal Ideation, Suicidal Ideation Hematologic/Lymphatic: Reports: No Symptoms Immunologic: Reports: No Symptoms ED EXAM, GENERAL - Physical Exam Exam: See Below Exam Limited By: No Limitations General Appearance: Alert, WD/WN, No Apparent Distress Respiratory/Chest: No Respiratory Distress, Lungs Clear, Normal Breath Sounds, No Accessory Muscle Use, Chest Non-Tender Cardiovascular: Normal Peripheral Pulses, Regular Rate, Rhythm, No Edema, No Gallop, No JVD, No Murmur, No Rub Neurological: Alert, Oriented, Normal Cognition, No Motor/Sensory Deficits, Other (faint tremor to LLE) Psychiatric: Flat Affect. No: Anxious Skin Exam: Warm, Dry, Intact, Normal Color, No Rash EKG INTERPRETATION EKG Date: 05/27/20 Time: 18:50 Rhythm: NSR Rate (Beats/Min): 79 [place]: Normal P-Wave: Present QRS: Normal ST-T: Normal QT: Normal EKG Interpretation Comments: incomplete RBBB diffuse ST depression - nonspecific EKG interpreted by Dr. Wyatt MD. Course - Vital Signs Last Recorded V/S: Last Vital Signs Temp 96.9 F 05/27/20 17:20 Pulse 96 05/27/20 17:20 Resp 16 05/27/20 17:20 BP 129/74 05/27/20 17:20 Pulse Ox 97 05/27/20 17:20 - Orders/Labs/Meds Orders: Active Orders 24 hr Category Date Time Status Peripheral IV Insertion Adult [OM.PC] Stat Oth 05/27/20 17:36 Ordered Labs: Laboratory Tests 05/27/20 05/27/20 05/27/20 Range/Units 18:05 18:05 18:05 WBC 10.97 H (3.98-10.04) K/mm3 RBC 4.96 (3.98-5.22) M/mm3 Hgb 15.3 D (11.2-15.7) gm/dl Hct 44.6 (34.1-44.9) % MCV 89.9 (79.4-94.8) fl MCH 30.8 (25.6-32.2) pg MCHC 34.3 (32.2-35.5) g/dl RDW Std Deviation 41.0 (36.4-46.3) fL Plt Count 221 (182-369) K/mm3 MPV 11.6 (9.4-12.3) fl Neut % (Auto) 64.9 (34.0-71.1) % Lymph % (Auto) 22.2 (19.3-51.7) % [place] % (Auto) 9.8 (4.7-12.5) % Eos % (Auto) 0.5 L (0.7-5.8) Baso % (Auto) 2.4 H (0.1-1.2) % Neut # (Auto) 7.12 H (1.56-6.13) K/mm3 Lymph # (Auto) 2.43 (1.18-3.74) K/mm3 [place] # (Auto) 1.08 H (0.24-0.36) K/mm3 Eos # (Auto) 0.06 (0.04-0.36) K/mm3 Baso # (Auto) 0.26 H (0.01-0.08) K/mm3 Manual Slide Review Normal smear Sodium 138 (136-145) mEq/L Potassium 3.2 L (3.5-5.1) mEq/L Chloride 101 (98-107) mEq/L Carbon Dioxide 29 (21-32) mEq/L Anion Gap 11.2 (5-15) BUN 9 (7-18) mg/dL Creatinine 0.8 (0.55-1.02) mg/dL Est Cr Clr Drug Dosing 75.88 mL/min Estimated GFR (MDRD) > 60 (>60) mL/min BUN/Creatinine Ratio 11.3 L (14-18) Glucose 144 H (74-106) mg/dL Calcium 9.3 (8.5-10.1) mg/dL Magnesium (1.8-2.4) mg/dl Total Bilirubin 0.8 (0.2-1.0) mg/dL AST 33 (15-37) U/L ALT 39 (14-59) U/L Alkaline Phosphatase 93 (46-116) U/L C-Reactive Protein 0.7 (<1.0) mg/dL Total Protein 7.3 (6.4-8.2) g/dl Albumin 3.8 (3.4-5.0) g/dl Globulin 3.5 gm/dL Albumin/Globulin Ratio 1.1 (1-2) Urine Opiates Screen (FSEBEE=476) Ur Buprenorphine Scrn (CUTOFF=10) Ur Oxycodone Screen (RNE9LB=990) Urine Methadone Screen (ITWTOF=264) Ur Propoxyphene Screen (KCGRFI=178) Ur Barbiturates Screen (MKTVFY=634) Ur Tricyclics Screen (TLZUYS=927) Ur Phencyclidine Scrn (CUTOFF=25) Ur Amphetamine Screen (NNXXRW=479) U Methamphetamines Scrn (FZNYWQ=764) U Benzodiazepines Scrn (ACXEHX=337) U Cocaine Metab Screen (TNWIMS=825) U Marijuana (THC) Screen (CUTOFF=50) Ethyl Alcohol 0.00 (0.00) gm% 05/27/20 05/27/20 Range/Units 18:05 18:43 WBC (3.98-10.04) K/mm3 RBC (3.98-5.22) M/mm3 Hgb (11.2-15.7) gm/dl Hct (34.1-44.9) % MCV (79.4-94.8) fl MCH (25.6-32.2) pg MCHC (32.2-35.5) g/dl RDW Std Deviation (36.4-46.3) fL Plt Count (182-369) K/mm3 MPV (9.4-12.3) fl Neut % (Auto) (34.0-71.1) % Lymph % (Auto) (19.3-51.7) % [place] % (Auto) (4.7-12.5) % Eos % (Auto) (0.7-5.8) Baso % (Auto) (0.1-1.2) % Neut # (Auto) (1.56-6.13) K/mm3 Lymph # (Auto) (1.18-3.74) K/mm3 [place] # (Auto) (0.24-0.36) K/mm3 Eos # (Auto) (0.04-0.36) K/mm3 Baso # (Auto) (0.01-0.08) K/mm3 Manual Slide Review Sodium (136-145) mEq/L Potassium (3.5-5.1) mEq/L Chloride (98-107) mEq/L Carbon Dioxide (21-32) mEq/L Anion Gap (5-15) BUN (7-18) mg/dL Creatinine (0.55-1.02) mg/dL Est Cr Clr Drug Dosing mL/min Estimated GFR (MDRD) (>60) mL/min BUN/Creatinine Ratio (14-18) Glucose (74-106) mg/dL Calcium (8.5-10.1) mg/dL Magnesium 1.6 L (1.8-2.4) mg/dl Total Bilirubin (0.2-1.0) mg/dL AST (15-37) U/L ALT (14-59) U/L Alkaline Phosphatase (46-116) U/L C-Reactive Protein (<1.0) mg/dL Total Protein (6.4-8.2) g/dl Albumin (3.4-5.0) g/dl Globulin gm/dL Albumin/Globulin Ratio (1-2) Urine Opiates Screen Negative (JCLLXV=868) Ur Buprenorphine Scrn Negative (CUTOFF=10) Ur Oxycodone Screen Negative (ZJW4MC=767) Urine Methadone Screen Negative (ACTLIF=003) Ur Propoxyphene Screen Negative (OTDMPJ=839) Ur Barbiturates Screen Negative (OJZDSA=578) Ur Tricyclics Screen Negative (WROEVR=807) Ur Phencyclidine Scrn Negative (CUTOFF=25) Ur Amphetamine Screen Negative (PDRJMF=316) U Methamphetamines Scrn Negative (VPEWXF=022) U Benzodiazepines Scrn Presumptive positive H (SCWGDW=046) U Cocaine Metab Screen Negative (UFPRRE=297) U Marijuana (THC) Screen Presumptive positive H (CUTOFF=50) Ethyl Alcohol (0.00) gm% Meds: Medications Discontinued Medications Generic Name Dose Route Start Last Admin Trade Name Freq PRN Reason Stop Dose Admin Sodium Chloride 1,000 mls @ 999 mls/hr 05/27/20 17:45 05/27/20 18:35 Normal Saline IV 999 mls/hr ASDIRECTED HELGA Administration Potassium Chloride 40 meq 05/27/20 18:46 05/27/20 19:21 Klor-Con M20 PO 05/27/20 18:47 40 meq ONETIME ONE Administration Sodium Chloride 10 ml 05/27/20 17:34 05/27/20 18:35 Saline Flush FLUSH 10 ml ASDIRECTED PRN Administration Keep Vein Open - Re-Assessments/Exams Free Text/Narrative Re-Assessment/Exam: Patient is a 44-year-old female who presents to the emergency department with complaints of new onset lower extremity tremor. Metformin was recently increased from 75 mg daily to 150 mg daily. She has had 2 full days of 150 mg, and so far today his weight taken 75 mg. Symptoms began this morning. They did resolve briefly but have returned and are fairly consistent in the left lower extremity. She also takes Haldol 15 mg daily as well as Ativan 1 mg 3 times daily as needed. A CBC, CMP, CRP, urine drug screen, and EtOH. We will do a 1 L bolus of normal saline. We will call and speak with Dr. Dockery as he is the prescribing provider to get his recommendations. 05/27/[address] Dockery, patient psychiatrist over the phone. He recommended to complete the lab work and fluid bolus. He would ultimately like to see her be go to a inpatient psychiatric unit, however patient's and her are not on board with this as he recently lost his insurance. He does have an appointment scheduled with her next Sunday morning he. He recommends in the meantime that she go back down to 75 mg of the clomipramine. I will update him when the results of the tests are available. I did also call and speak with the patient's , Renato. He confirmed that they are not on board with inpatient psychiatry at this time due to financial reasons and he feels that they have a good relationship with Dr. Dockery in his office and have been satisfied with his care thus far. Updated him that we will notify him when test results are available and when she is ready for discharge. 05/27/20 20:01 Patient's work-up was significant for WBC minimally elevated at 10.97, potassium low at 3.2. Urine drug screen was positive for benzodiazepines as well as marijuana. Her EKG showed some nonspecific ST depression diffusely. She has had no chest pain or shortness of breath. I did discuss this with the patient and she states that she stopped smoking marijuana approximate 2 months ago, however she is still in contact with individuals were smoking marijuana around her. She is feeling better after the IV fluid bolus. Tremor has improved. She feels she is ready to go home. I discussed with her that she should establish care with a primary care provider for a routine cardiac work-up. She is in agreement with this. I did call and speak with her Renato and updated on test results as well as positive marijuana screen. He states that she did stop smoking marijuana about 2 months ago, however he does sometimes smoke marijuana around her. I emphasized the importance of her having no contact with illicit drugs as they can cause adverse effects and interact with her psychiatric medications. I also updated him on her need to establish care with a primary care doctor for a routine cardiac work-up and he verbalized understanding. We will discharge her home with instructions to decrease her clomipramine to 75 mg daily and follow-up with Dr. Dockery on Sunday as scheduled. I did also call and speak with Dr. Dockery and update him of the test results. Discharge instructions as documented. Departure - Departure Time of Disposition: 19:43 Disposition: Home, Self-Care 01 Condition: Good Clinical Impression: Tremor - Discharge Information *PRESCRIPTION DRUG MONITORING PROGRAM REVIEWED*: No *COPY OF PRESCRIPTION DRUG MONITORING REPORT IN PATIENT RACHEL: No Instructions: Tremor Referrals: Kyler Dockery MD [Primary Care Provider] - Forms: ED Department Discharge Additional Instructions: You were seen in the emergency department this evening for a new onset of tremor to your legs. Your work-up included blood work, drug screen, as well as an EKG of your heart. On your work-up, your potassium was found to be slightly low and this was replaced while in the emergency department. You were also found to be positive for marijuana. You verbalized that you no longer smoke marijuana, however you have had contact with individuals were smoking marijuana around you. Would recommend that you abstain from any contact with marijuana as this can interact with your psychiatric medications and cause adverse effects. Your EKG showed some nonspecific changes. These are nondiagnostic of any cardiac emergency, however I would recommend that you establish care with a primary care provider for medical to have a routine cardiac work-up such as stress test and echocardiogram completed. Recommend that you continue to take your oral potassium daily. Decrease your clomipramine to 75 mg daily as you were taking previously. Follow-up with Dr. Dockery Sunday as scheduled. Return to ER for any new or worsening symptoms of concern. Sepsis Event Note (ED) - Evaluation Sepsis Screening Result: No Definite Risk - Focused Exam Vital Signs: Vital Signs Temp Pulse Resp BP Pulse Ox 05/27/20 17:20 96.9 F 96 16 129/74 97 - My Orders Last 24 Hours: My Active Orders 05/27/20 17:36 Peripheral IV Insertion Adult [OM.PC] Stat - Assessment/Plan Last 24 Hours: My Active Orders 05/27/20 17:36 Peripheral IV Insertion Adult [OM.PC] Stat
[2020-05-27] MEDS ORDERED: Potassium Chloride 20 MEQ Tab.ER PO ONE (18:46)
== END 2020-05-27 19:52 | disposition home or self-care (01) ==
LOC: JD.ED 17:02
DX: R25.1 Tremor, unspecified (principal); F17.210 Nicotine dependence, cigarettes, uncomplicated; F41.9 Anxiety disorder, unspecified; F32.9 Major depressive disorder, single episode, unspecified; Z91.018 Allergy to other foods; Z88.1 Allergy status to other antibiotic agents; Z88.8 Allergy status to other drugs, medicaments and biological substances; Z79.899 Other long term (current) drug therapy
CPT/HCPCS: 36415; 80053; 80306; 80307; 83735; 85025; 86140; 93005; 96360; 99283; A9270; J7030; 93010

== ENCOUNTER 2024-03-11 10:41 | Emergency (ER) | payer BC ==
[2024-03-11 12:14] VITALS: BP 110/80; PULSE 52
== END 2024-03-11 12:31 | disposition home or self-care (01) ==
LOC: JD.ED 10:41
DX: S82.65XA Nondisplaced fracture of lateral malleolus of left fibula, initial encounter for closed fracture (principal); F17.210 Nicotine dependence, cigarettes, uncomplicated; Z91.018 Allergy to other foods; Z88.8 Allergy status to other drugs, medicaments and biological substances; Z79.899 Other long term (current) drug therapy; Z90.49 Acquired absence of other specified parts of digestive tract; W19.XXXA Unspecified fall, initial encounter
CPT/HCPCS: 29515; 73610-26-LT; 73610-LT; 99282; 99283-25